=== PATIENT | female | born 1975 | race Caucasian/White ===

== ENCOUNTER 2017-05-14 17:56 | Emergency (ER) | payer OTHER ==
[2017-05-14 18:07] VITALS: BP 137/67; PULSE 103; RESP 16; TEMP 99.1
--- NOTE | 2017-05-14 18:29 | ED ---
Skin/Abscess/FB HPI - General Chief complaint: Skin/Abscess/Foreign Body Stated complaint: abscess on left side of head Time Seen by Provider: 05/14/17 18:22 Source: patient, RN notes reviewed Mode of arrival: ambulatory Limitations: no limitations - History of Present Illness Initial comments: This is a 41-year-old female who presents to the emergency department with chief complaint of abscess. Patient states that she developed an abscess on the left side of her head 2 days ago. She states that it has progressively grown in size since that time. Patient states that she frequently gets abscesses on her scalp and has to have them lanced and given antibiotics. Patient is unsure of which antibiotic she is usually prescribed. Patient denies any history of MRSA. Denies fever or chills. Denies chest pain, shortness of breath, abdominal pain, nausea or vomiting, headache or vision changes. - Related Data Previous Rx's Medication Instructions Recorded Sulfamethox-Tmp 800-160Mg [Bactrim 1 tab PO Q12HR #20 tab 05/14/17 DS 800-160 mg] Allergies Allergy/AdvReac Type Severity Reaction Status Date / Time Penicillins Allergy Anaphylaxis Verified 05/14/17 18:08 Review of Systems ROS Statement: Those systems with pertinent positive or pertinent negative responses have been documented in the HPI. ROS Other: All systems not noted in ROS Statement are negative. Past Medical History Past Medical History: Blood Disorder, CVA/TIA, Diabetes Mellitus, Deep Vein Thrombosis (DVT), GERD/Reflux, Hyperlipidemia, Hypertension, Osteoarthritis (OA) Additional Past Medical History / Comment(s): neuropathy, chronic anemia History of Any Multi-Drug Resistant Organisms: None Reported Past Surgical History: Cholecystectomy Additional Past Surgical History / Comment(s): 2 right knee surgeries, nose reconstruction, carpal tunnel surgery in both hands, laser eye surgery, hysteroscopy after miscarriage, ovarian cyst removal Past Psychological History: Depression Smoking Status: Never smoker Past Alcohol Use History: Occasional Past Drug Use History: None Reported General Exam - General Exam Comments Initial Comments: General: Awake and alert, well-developed; in no apparent distress. HEENT: Head atraumatic, normocephalic. Approximately 2 cm x 2 cm abscess left scalp superior to left ear. There is minimal drainage and crusting overlying the abscess with surrounding erythema. Pupils are equal, round and reactive to light. Extraocular movements intact. Oropharynx moist without erythema or exudate. Neck: Supple. Normal ROM. Cardiovascular: Regular rate and rhythm. No murmurs, rubs or gallops. Chest symmetrical. Respiratory: Lungs clear to auscultation bilaterally. No wheezes, rales or rhonchi. Normal respiratory effort with no use of accessory muscles. Musculoskeletal: Normal ROM, no tenderness bilateral upper and lower extremities. Ambulating normally. Skin: [place], warm and dry. Neurological: Alert and oriented x3. CN II-XII grossly intact. Speech is fluent and answers are appropriate. No focal neuro deficits. Psychiatric: Normal mood and affect. No overt signs of depression or anxiety noted. Limitations: no limitations Course Vital Signs 05/14/17 18:01 Temperature 99.1 F Pulse Rate 103 H Respiratory 16 Rate Blood Pressure 137/67 O2 Sat by Pulse 99 Oximetry Procedures - Incision & Drainage Consent Obtained: verbal consent Indication: Abscess Site: scalp (Left parietal superior to the ear) Size (cm): 2 Anesthetic Used: lidocaine 1% Amount (mLs): 3 I&D Cleaning Method: Alcohol Wipe Scalpel Used: #11 I&D Drainage Obtained: Pus, Blood Culture Obtained?: No Patient Tolerated Procedure: well, no complications Medical Decision Making - Medical Decision Making This is a 41-year-old female who presents to the emergency department for evaluation of abscess on left side of scalp. I&D was performed and patient tolerated well without complication. Patient will be started on Bactrim. Vital signs are stable and she is in no acute distress. She will be discharged home. She is in agreement and voices understanding. All questions answered. Disposition Clinical Impression: Scalp abscess Disposition: HOME SELF-CARE Condition: Good Instructions: Abscess Incision and Drainage (ED), Abscess (ED) Additional Instructions: Please take medications as prescribed. Please apply warm compresses. Please follow up with primary care provider within 1-2 days. Return to emergency department if symptoms should worsen or any concerns arise. Prescriptions: Sulfamethox-Tmp 800-160Mg [Bactrim DS 800-160 mg] 1 tab PO Q12HR #20 tab Referrals: None,Stated [Primary Care Provider] - 1-2 days Time of Disposition: 18:29
== END 2017-05-14 18:51 | disposition home or self-care (01) ==
LOC: EC 17:56
DX: L02.811 Cutaneous abscess of head [any part, except face] (principal); Z86.73 Personal history of transient ischemic attack (TIA), and cerebral infarction without residual deficits; Z88.0 Allergy status to penicillin
CPT/HCPCS: 10060; 99283

== ENCOUNTER → 2017-10-28 | Outpatient (CLI) | payer OTHER ==
--- NOTE | 2017-10-28 22:33 | US ---
EXAMINATION TYPE: US st tissue neck DATE OF EXAM: 10/28/2017 COMPARISON: NONE CLINICAL HISTORY: 42-year-old female R22.1 Lump in neck. Pt states palpable lump midline submandibula r since childhood, has recently gotten larger/ also palpable lump left lateral neck by physician Technique: Targeted sonographic examination below the chin at the site of palpable abnormality and al so along the left lateral neck. FINDINGS: Veneer Clipper Helper notes: Midline submandibular at area of pt's palpable shows two probable lymph nodes padma uring 6 mm and 5 mm. Along the left lateral neck at area of physician palpated abnormality, there are two probable lymph n odes measuring 2 mm and 5 mm short axis. Otherwise, no solid or cystic lesions are seen. IMPRESSION: A couple lymph nodes at each site of palpable abnormality, personally at the submental region and sec ondly along the left lateral neck. The nodes in the submental region are borderline in size measuring up to 6 mm. The nodes along the left lateral neck are small measuring up to 5 mm short axis.
== END | disposition home or self-care (01) ==
LOC: RADUSWWP 15:02
PROVIDERS: ATTEND Family Medicine
DX: R22.1 Localized swelling, mass and lump, neck (principal)
CPT/HCPCS: 76536

== ENCOUNTER → 2017-11-05 | Outpatient (CLI) | payer OTHER ==
--- NOTE | 2017-11-05 14:27 | US ---
EXAMINATION TYPE: US venous doppler duplex LE RT DATE OF EXAM: 11/05/2017 2:15 PM COMPARISON: NONE CLINICAL HISTORY: M79.89 RT LEG SWELLING. Pt states right leg swelling SIDE PERFORMED: Right TECHNIQUE: The lower extremity deep venous system is examined utilizing real time linear array sonog refugio with graded compression, doppler sonography and color-flow sonography. VESSELS IMAGED: External Iliac Vein (EIV) Common Femoral Vein Deep Femoral Vein Greater Saphenous Vein * Femoral Vein Popliteal Vein Small Saphenous Vein * Proximal Calf Veins (* superficial vessels) Right Leg: Negative for DVT Grayscale, color doppler, spectral doppler imaging performed of the deep veins of the right lower ext remity. There is normal flow, compressibility, vascular waveforms. IMPRESSION: No ultrasound evidence for acute DVT in the right lower extremity.
== END | disposition home or self-care (01) ==
LOC: RADUSWWP 13:46
PROVIDERS: ATTEND Family Medicine
DX: M79.89 Other specified soft tissue disorders (principal)

== ENCOUNTER 2017-12-05 02:47 | Emergency (ER) | payer OTHER ==
[2017-12-05] MEDS ORDERED: SODIUM CHLORIDE 0.9% 1,000 ML IV STA (03:01)
[2017-12-05] MEDS ORDERED: ONDANSETRON 4 MG/2 ML VIAL IVP STA (03:01)
[2017-12-05] MEDS ORDERED: MORPHINE SULFATE 4 MG/ML SYRINGE IV STA (03:01)
--- NOTE | 2017-12-05 03:04 | ED ---
Abdominal Pain HPI <Rafael Bess - Last Filed: 12/05/17 06:04> - General Source: patient, family Mode of arrival: wheelchair Limitations: no limitations <Bindu Mckeon - Last Filed: 12/06/17 03:28> - General Chief Complaint: Abdominal Pain Stated Complaint: ABD PAIN Time Seen by Provider: 12/05/17 02:55 - History of Present Illness Initial Comments: 42-year-old female patient presents to the emergency department today for evaluation of right side abdominal pain. Patient states that the pain started approximately 20 minutes prior to arrival. She reports that the pain is intermittent and stabbing in nature. Patient states that she is nauseated and has had dry heaves since the pain started. Patient last had food intake at 6: 30 PM. Patient denies any constipation or diarrhea. Denies any hematuria, dysuria, urinary frequency, urinary urgency. Denies any chest pain or shortness of breath with this. Has not had any fevers or chills. States she is feeling well throughout the day. Patient has had cholecystectomy and a left ovarian cyst removed. Patient denies any recent rash, back pain, numbness, tingling, dizziness, weakness, headache, visual changes, or any other complaints. (Bindu Mckeon) - Related Data Previous Rx's Medication Instructions Recorded Famotidine [Pepcid] 20 mg PO BID #14 tablet 12/05/17 Allergies Allergy/AdvReac Type Severity Reaction Status Date / Time Penicillins Allergy Anaphylaxis Verified 12/05/17 02:54 Review of Systems ROS Other: All systems not noted in ROS Statement are negative. <Rafael Bess - Last Filed: 12/05/17 06:04> ROS Other: All systems not noted in ROS Statement are negative. <Bindu Mckeon - Last Filed: 12/06/17 03:28> ROS Statement: Those systems with pertinent positive or pertinent negative responses have been documented in the HPI. Past Medical History Past Medical History: Blood Disorder, CVA/TIA, Diabetes Mellitus, Deep Vein Thrombosis (DVT), GERD/Reflux, Hyperlipidemia, Hypertension, Osteoarthritis (OA) Additional Past Medical History / Comment(s): neuropathy, chronic anemia History of Any Multi-Drug Resistant Organisms: None Reported Past Surgical History: Cholecystectomy Additional Past Surgical History / Comment(s): 2 right knee surgeries, nose reconstruction, carpal tunnel surgery in both hands, laser eye surgery, hysteroscopy after miscarriage, ovarian cyst removal Past Psychological History: Anxiety, Bipolar, Depression, PTSD Smoking Status: Never smoker Past Alcohol Use History: Occasional Past Drug Use History: None Reported <Bindu Mckeon - Last Filed: 12/06/17 03:28> General Exam Limitations: no limitations General appearance: alert, in no apparent distress, other (This is a well- developed, well-nourished adult female patient in no acute distress. Vital signs upon presentation are temperature 98.6F, pulse 84, respirations 20, blood pressure 108/73, pulse ox 98% on room air.) Eye exam: Present: normal appearance, PERRL, EOMI. Absent: scleral icterus, conjunctival injection, periorbital swelling ENT exam: Present: normal exam, normal oropharynx, mucous membranes moist Respiratory exam: Present: normal lung sounds bilaterally. Absent: respiratory distress, wheezes, rales, rhonchi, stridor Cardiovascular Exam: Present: regular rate, normal rhythm, normal heart sounds. Absent: systolic murmur, diastolic murmur, rubs, gallop, clicks GI/Abdominal exam: Present: soft, tenderness (Right upper quadrant and midepigastric tenderness), normal bowel sounds. Absent: distended, guarding, rebound, rigid Back exam: Absent: CVA tenderness (R), CVA tenderness (L) Neurological exam: Present: alert, oriented X3, CN II-XII intact Psychiatric exam: Present: normal affect, normal mood Skin exam: Present: warm, dry, intact, normal color. Absent: rash <Bindu Mckeon - Last Filed: 12/06/17 03:28> Vital Signs 12/05/17 12/05/17 02:50 06:15 Temperature 98.6 F 97.9 F Pulse Rate 84 87 Respiratory 20 18 Rate Blood Pressure 108/73 121/61 O2 Sat by Pulse 98 97 Oximetry Medical Decision Making - Lab Data Result diagrams: 12/05/17 03:15 12/05/17 03:15 <Rafael Bess - Last Filed: 12/05/17 06:04> - Lab Data Result diagrams: 12/05/17 03:15 12/05/17 03:15 <Bindu Mckeon - Last Filed: 12/06/17 03:28> - Medical Decision Making 42-year-old female patient presented to the emergency department today for evaluation of right-sided abdominal pain. Physical examination did reveal some midepigastric and right upper quadrant abdominal tenderness. Symptoms started just 20 minutes prior to arrival. Labs and x-ray read are pending. Case will be handed over to my attending Dr. Bess who will follow patient until disposition. (Bindu Mckeon) - Lab Data Lab Results 12/05/17 12/05/17 12/05/17 Range/Units 03:15 03:15 03:15 WBC 11.6 H (3.8-10.6) k/uL RBC 5.20 (3.80-5.40) m/uL Hgb 13.2 (11.4-16.0) gm/dL Hct 43.8 (34.0-46.0) % MCV 84.1 (80.0-100.0) fL MCH 25.4 (25.0-35.0) pg MCHC 30.2 L (31.0-37.0) g/dL RDW 16.4 H (11.5-15.5) % Plt Count 296 (150-450) k/uL Neutrophils % 66 % Lymphocytes % 23 % Monocytes % 8 % Eosinophils % 1 % Basophils % 1 % Neutrophils # 7.6 (1.3-7.7) k/uL Lymphocytes # 2.7 (1.0-4.8) k/uL Monocytes # 0.9 (0-1.0) k/uL Eosinophils # 0.1 (0-0.7) k/uL Basophils # 0.1 (0-0.2) k/uL Hypochromasia Slight Anisocytosis Slight Sodium 136 L (137-145) mmol/L Potassium 4.0 (3.5-5.1) mmol/L Chloride 103 (98-107) mmol/L Carbon Dioxide 23 (22-30) mmol/L Anion Gap 10 mmol/L BUN 11 (7-17) mg/dL Creatinine 0.63 (0.52-1.04) mg/dL Est GFR (CKD-EPI)AfAm >90 (>60 ml/min/1.73 sqM) Est GFR (CKD-EPI)NonAf >90 (>60 ml/min/1.73 sqM) Glucose 257 H (74-99) mg/dL Plasma Lactic Acid Hermes 1.2 (0.7-2.0) mmol/L Calcium 9.0 (8.4-10.2) mg/dL Total Bilirubin 0.2 (0.2-1.3) mg/dL AST 14 (14-36) U/L ALT 20 (9-52) U/L Alkaline Phosphatase 85 (38-126) U/L Total Protein 6.7 (6.3-8.2) g/dL Albumin 4.0 (3.5-5.0) g/dL Amylase 64 (30-110) U/L Lipase 266 (23-300) U/L Urine Color Urine Appearance (Clear) Urine pH (5.0-8.0) Ur Specific [place] (1.001-1.035) Urine Protein (Negative) Urine Glucose (UA) (Negative) Urine Ketones (Negative) Urine Blood (Negative) Urine Nitrite (Negative) Urine Bilirubin (Negative) Urine Urobilinogen (<2.0) mg/dL Ur Leukocyte Esterase (Negative) Urine RBC (0-5) /hpf Urine WBC (0-5) /hpf Ur Squamous Epith Cells (0-4) /hpf Urine Mucus (None) /hpf Urine HCG, Qual (Not Detectd) 12/05/17 12/05/17 Range/Units 03:15 03:15 WBC (3.8-10.6) k/uL RBC (3.80-5.40) m/uL Hgb (11.4-16.0) gm/dL Hct (34.0-46.0) % MCV (80.0-100.0) fL MCH (25.0-35.0) pg MCHC (31.0-37.0) g/dL RDW (11.5-15.5) % Plt Count (150-450) k/uL Neutrophils % % Lymphocytes % % Monocytes % % Eosinophils % % Basophils % % Neutrophils # (1.3-7.7) k/uL Lymphocytes # (1.0-4.8) k/uL Monocytes # (0-1.0) k/uL Eosinophils # (0-0.7) k/uL Basophils # (0-0.2) k/uL Hypochromasia Anisocytosis Sodium (137-145) mmol/L Potassium (3.5-5.1) mmol/L Chloride (98-107) mmol/L Carbon Dioxide (22-30) mmol/L Anion Gap mmol/L BUN (7-17) mg/dL Creatinine (0.52-1.04) mg/dL Est GFR (CKD-EPI)AfAm (>60 ml/min/1.73 sqM) Est GFR (CKD-EPI)NonAf (>60 ml/min/1.73 sqM) Glucose (74-99) mg/dL Plasma Lactic Acid Hermes (0.7-2.0) mmol/L Calcium (8.4-10.2) mg/dL Total Bilirubin (0.2-1.3) mg/dL AST (14-36) U/L ALT (9-52) U/L Alkaline Phosphatase (38-126) U/L Total Protein (6.3-8.2) g/dL Albumin (3.5-5.0) g/dL Amylase (30-110) U/L Lipase (23-300) U/L Urine Color Light Yellow Urine Appearance Clear (Clear) Urine pH 5.0 (5.0-8.0) Ur Specific [place] 1.008 (1.001-1.035) Urine Protein Negative (Negative) Urine Glucose (UA) 4+ H (Negative) Urine Ketones Trace H (Negative) Urine Blood Negative (Negative) Urine Nitrite Negative (Negative) Urine Bilirubin Negative (Negative) Urine Urobilinogen <2.0 (<2.0) mg/dL Ur Leukocyte Esterase Small H (Negative) Urine RBC 1 (0-5) /hpf Urine WBC 1 (0-5) /hpf Ur Squamous Epith Cells 2 (0-4) /hpf Urine Mucus Rare H (None) /hpf Urine HCG, Qual Not Detected (Not Detectd) Disposition <Rafael Bess - Last Filed: 12/05/17 06:04> Is patient prescribed a controlled substance at d/c from ED?: No <Bindu Mckeon - Last Filed: 12/06/17 03:28> Clinical Impression: Abdominal pain Disposition: HOME SELF-CARE Condition: Good Instructions: Abdominal Pain (ED) Prescriptions: Famotidine [Pepcid] 20 mg PO BID #14 tablet Referrals: Mary Mireles MD [Primary Care Provider] - 1-2 days Armando Krueger MD [STAFF PHYSICIAN] - 1-2 days
[2017-12-05 03:46] LABS: ALT 20 U/L (9-52); AST 14 U/L (14-36); Alkaline Phosphatase 85 U/L (38-126); Amylase 64 U/L (30-110); Anion Gap 10 mmol/L; Blood Urea Nitrogen 11 mg/dL (7-17); Carbon Dioxide 23 mmol/L (22-30); Chloride 103 mmol/L (98-107); Glucose 257 mg/dL (74-99); Lipase 266 U/L (23-300); Sodium 136 mmol/L (137-145); Total Bilirubin 0.2 mg/dL (0.2-1.3); Total Protein 6.7 g/dL (6.3-8.2)
[2017-12-05 03:48] LABS: Appearance,Urine Clear (Clear); Bilirubin,Urine Negative (Negative); Blood,Urine Negative (Negative); Color,Urine Light Yellow; Glucose,Urine (UA) 4+ (Negative); Ketones,Urine Trace (Negative); Leukocyte Esterase,Urine Small (Negative); Mucus,Urine Rare /hpf; Nitrite,Urine Negative (Negative); Protein,Urine Negative (Negative); RBC,Urine 1 /hpf (0-5); Specific Gravity,Urine 1.008 (1.001-1.035); Squamous Epithelial Cell,Urine 2 /hpf (0-4); Urobilinogen,Urine <2.0 mg/dL (<2.0); WBC,Urine 1 /hpf (0-5)
[2017-12-05 03:53] LABS: Anisocytosis Slight; Basophils # (A) 0.1 k/uL (0-0.2); Basophils % (A) 1 %; Eosinophils # (A) 0.1 k/uL (0-0.7); Eosinophils % (A) 1 %; HCT 43.8 % (34.0-46.0); HGB 13.2 gm/dL (11.4-16.0); Hypochromasia Slight; Lymphocytes # (A) 2.7 k/uL (1.0-4.8); Lymphocytes % (A) 23 %; MCH 25.4 pg (25.0-35.0); MCHC 30.2 g/dL (31.0-37.0); MCV 84.1 fL (80.0-100.0); Mean Platelet Volume 7.7; Monocytes # (A) 0.9 k/uL (0-1.0); Monocytes % (A) 8 %; Neutrophils # (A) 7.6 k/uL (1.3-7.7); Neutrophils % (A) 66 %; Platelet Count 296 k/uL (150-450); RDW 16.4 % (11.5-15.5); WBC 11.6 k/uL (3.8-10.6)
--- NOTE | 2017-12-05 04:15 | XR ---
EXAMINATION TYPE: XR KUB DATE OF EXAM: 12/05/2017 COMPARISON: NONE HISTORY: Abdominal pain TECHNIQUE: 2 views FINDINGS: There is no sign of intestinal obstruction or pneumoperitoneum. Fecal pattern is normal. Th ere are clips from cholecystectomy. There are no pathologic calcifications over the kidneys. There is no evidence of a mass. IMPRESSION: Nonacute abdomen.
--- NOTE | 2017-12-05 05:35 | CT ---
EXAMINATION TYPE: CT abdomen pelvis wo con DATE OF EXAM: 12/05/2017 COMPARISON: None HISTORY: abd pain CT DLP: 996.11 mGycm Automated exposure control for dose reduction was used. TECHNIQUE: Helical acquisition of images was performed from the lung bases through the pelvis. FINDINGS: Lung bases are clear of consolidation. There is no pleural effusion. Heart size is normal. There is n o pericardial effusion. Liver spleen pancreas appear normal. Bile ducts are not dilated. There are clips from cholecystectomy . There is no adrenal mass. Kidneys have normal size and contour. There is no hydronephrosis. Ureters are not dilated. There is no retroperitoneal adenopathy. Appendix appears normal. There is no ascite s. There is no intestinal wall thickening. There are no dilated loops. There is no sign of pneumoperi toneum. Uterus is large and anteverted. This probably relates to fibroids. Lumbar spine is intact. Bl adder distends smoothly. There is no sign of a hernia. IMPRESSION: ENLARGED UTERUS THAT MEASURES 13 X 8 CM CONSISTENT WITH FIBROIDS. NO SIGN OF ACUTE ABDOMEN AND PELVIS . NORMAL APPENDIX.
[2017-12-05 06:16] VITALS: BP 121/61; PULSE 87; RESP 18; TEMP 97.9
== END 2017-12-05 06:15 | disposition home or self-care (01) ==
LOC: EC 02:47
DX: R10.31 Right lower quadrant pain (principal); R11.2 Nausea with vomiting, unspecified; Z86.73 Personal history of transient ischemic attack (TIA), and cerebral infarction without residual deficits; Z90.49 Acquired absence of other specified parts of digestive tract; Z88.0 Allergy status to penicillin
CPT/HCPCS: 36415; 80053; 82150; 83605; 83690; 85025; 81001; 81025; 74018; 74176; 99284; 96374; 96375; 96361 ×3; J2270; J2405

== ENCOUNTER 2017-12-22 21:30 | Emergency (ER) | payer OTHER ==
[2017-12-22 21:38] VITALS: BP 119/57; PULSE 96; RESP 18; TEMP 98.6
[2017-12-22] MEDS ORDERED: SULFAMETH-TMP DS STARTER PACK 2 TAB BTL PO STA (22:03)
[2017-12-22] MEDS ORDERED: KETOROLAC 30 MG/ML 1 ML VIAL IM STA (22:03)
[2017-12-22] MEDS ORDERED: ACET/COD 300 MG/30 MG STARTER PACK 6 TAB BTL PO STA (22:03)
--- NOTE | 2017-12-22 22:04 | ED ---
Skin/Abscess/FB HPI - General Chief complaint: Skin/Abscess/Foreign Body Stated complaint: abscess Time Seen by Provider: 12/22/17 21:43 Source: patient Mode of arrival: ambulatory Limitations: no limitations - History of Present Illness Initial comments: 42-year-old female patient presents to the emergency department today for evaluation of left-sided facial swelling. Patient states this started when she woke this morning. Patient states that the area to her left upper lip is swollen, painful, and firm to touch. Patient states that the pain has been worsening throughout the day. States that she has had similar type lesions that were diagnosed with abscesses. Patient denies any dental pain or mouth swelling. She denies any difficulty swallowing or trismus. States that she did have elevated temperature at home today, did take Motrin for this. She denies any drainage from the site. Patient denies any recent rash, shortness breath, chest pain, abdominal pain, nausea, vomiting, diarrhea, constipation, back pain, numbness, tingling, dizziness, weakness, hematuria, dysuria, urinary urgency, urinary frequency, headache, visual changes, or any other complaints. - Related Data Previous Rx's Medication Instructions Recorded Famotidine [Pepcid] 20 mg PO BID #14 tablet 12/05/17 Sulfamethoxazole/Trimethoprim 1 each PO BID #20 tablet 12/22/17 [Bactrim DS 800-160 mg] Allergies Allergy/AdvReac Type Severity Reaction Status Date / Time Penicillins Allergy Anaphylaxis Verified 12/22/17 21:38 Review of Systems ROS Statement: Those systems with pertinent positive or pertinent negative responses have been documented in the HPI. ROS Other: All systems not noted in ROS Statement are negative. Past Medical History Past Medical History: Blood Disorder, CVA/TIA, Diabetes Mellitus, Deep Vein Thrombosis (DVT), GERD/Reflux, Hyperlipidemia, Hypertension, Osteoarthritis (OA) Additional Past Medical History / Comment(s): neuropathy, chronic anemia History of Any Multi-Drug Resistant Organisms: None Reported Past Surgical History: Cholecystectomy Additional Past Surgical History / Comment(s): 2 right knee surgeries, nose reconstruction, carpal tunnel surgery in both hands, laser eye surgery, hysteroscopy after miscarriage, ovarian cyst removal Past Psychological History: Anxiety, Bipolar, Depression, PTSD Smoking Status: Never smoker Past Alcohol Use History: None Reported Past Drug Use History: None Reported General Exam Limitations: no limitations General appearance: alert, in no apparent distress, other (This is a well- developed, well-nourished adult female patient in no acute distress. Vital signs upon presentation are temperature 98.6F, pulse 96, respirations 18, blood pressure 119/57, pulse ox 97% on room air.) Eye exam: Present: normal appearance, PERRL, EOMI. Absent: scleral icterus, conjunctival injection, periorbital swelling ENT exam: Present: normal exam, normal oropharynx, mucous membranes moist Respiratory exam: Present: normal lung sounds bilaterally. Absent: respiratory distress, wheezes, rales, rhonchi, stridor Cardiovascular Exam: Present: regular rate, normal rhythm, normal heart sounds. Absent: systolic murmur, diastolic murmur, rubs, gallop, clicks GI/Abdominal exam: Present: soft, normal bowel sounds. Absent: distended, tenderness, guarding, rebound, rigid Neurological exam: Present: alert, oriented X3, CN II-XII intact Psychiatric exam: Present: normal affect, normal mood Skin exam: Present: warm, dry, intact, normal color, other (Patient has 2 cm area of induration to the left upper lip. There is a central scabbed lesion with no evidence of drainage. Area is mildly erythematous. No fluctuance or evidence of drainable abscess.). Absent: rash Course Vital Signs 12/22/17 21:36 Temperature 98.6 F Pulse Rate 96 Respiratory 18 Rate Blood Pressure 119/57 O2 Sat by Pulse 97 Oximetry Medical Decision Making - Medical Decision Making 42-year-old female patient presented to the emergency department today for evaluation of left-sided facial pain and swelling. Physical examination did reveal 2 cm area of induration to the left upper lip. Area was mildly erythematous. No evidence of drainable abscess. Patient will be started on Bactrim and instructed to follow-up with her primary care physician for recheck tomorrow. Return parameters discussed in detail. She verbalizes understanding and agrees with this plan. Disposition Clinical Impression: Facial abscess Disposition: HOME SELF-CARE Condition: Good Instructions: Abscess (ED) Additional Instructions: Apply warm compresses to the face 20 minutes at a time at least 4 times daily. Take medications as directed. Follow-up with your primary care physician for recheck in 1-2 days. Return here immediately for any new, worsening, or concerning symptoms. Prescriptions: Sulfamethoxazole/Trimethoprim [Bactrim DS 800-160 mg] 1 each PO BID #20 tablet Is patient prescribed a controlled substance at d/c from ED?: No Referrals: Mary Mireles MD [Primary Care Provider] - 1-2 days Time of Disposition: 22:04
== END 2017-12-22 22:15 | disposition home or self-care (01) ==
LOC: EC 21:30
DX: L02.01 Cutaneous abscess of face (principal); Z86.73 Personal history of transient ischemic attack (TIA), and cerebral infarction without residual deficits; Z88.0 Allergy status to penicillin
CPT/HCPCS: 99283; 96372; J1885

== ENCOUNTER → 2017-12-29 | Outpatient (CLI) | payer OTHER ==
--- NOTE | 2017-12-29 16:13 | US ---
EXAMINATION TYPE: US transvaginal DATE OF EXAM: 12/29/2017 COMPARISON: CT CLINICAL HISTORY: N92.1Excessive and frequent metrorrhagia. TECHNIQUE: Transvaginal (TV). Date of LMP: 12/11/2017 EXAM MEASUREMENTS: Uterus: 11.8 x 6.5 x 8.8 cm Endometrial Stripe: 1.9 cm Right Ovary: 3.4 x 2.4 x 3.2 cm Left Ovary: 3.2 x 1.9 x 3.2 cm 1. Uterus: Anteverted enlarged, one fibroid seen left uterus measures 2.5 x 2.1 x 2.2 cm. 2. Endometrium: measures 1.9 cm 3. Right Ovary: Solitary lesion with peripheral flow measures 1.9 x 1.8 x 1.7 cm. 4. Left Ovary: not well seen transvaginally, additional images done transabdominally. 5. Bilateral Adnexa: wnl 6. Posterior cul-de-sac: no free fluid IMPRESSION: 1. Abnormal endometrial thickening measuring up to 1.9 cm. This could represent endometrial hyperplas ia, endometrial polyp, or endometrial mass. Direct visualization and sampling is recommended. 2. Dominant right ovarian lesion with peripheral vascular flow likely representing an involuting hemo rrhagic cyst. 3. Heterogenous enlarged uterus with an intramural leiomyoma measuring 2.5 cm.
--- NOTE | 2017-12-30 09:42 | MM ---
Reason for exam: screening (asymptomatic). Last mammogram was performed 3 years and 2 months ago. History: Family history of breast cancer in grandmother and breast cancer in 2 aunts. Physical Findings: A clinical breast exam by your physician is recommended on an annual basis and results should be correlated with mammographic findings. MG Screening Mammo w CAD Bilateral CC and MLO view(s) were taken. Technologist: RT Zee (R)(M) Prior study comparison: October 21, 2014, mammogram, performed at [place]. July 15, 2013, mammogram, performed at [place]. The breast tissue is heterogeneously dense. This may lower the sensitivity of mammography. Finding: There are typically benign round, linear calcifications in the upper outer quadrant, anterior position of the right breast. There is no discrete abnormality. ASSESSMENT: Benign, BI-RAD 2 RECOMMENDATION: Routine screening mammogram of both breasts in 1 year.
== END | disposition home or self-care (01) ==
LOC: RADMAMWWP 15:06
PROVIDERS: ATTEND Obstetrics & Gynecology
DX: Z12.31 Encounter for screening mammogram for malignant neoplasm of breast (principal); R93.89 Abnormal findings on diagnostic imaging of other specified body structures; N83.8 Other noninflammatory disorders of ovary, fallopian tube and broad ligament; N85.2 Hypertrophy of uterus
CPT/HCPCS: 76830; 77067

== ENCOUNTER 2018-01-21 06:16 | Day surgery (SDC) | payer OTHER ==
[2018-01-14 12:14] VITALS: BMI 35.2
[~2018-01-21 06:16] MED LIST: LACTATED RINGERS 1,000 ML IV SCH; MOXIFLOXACIN HCL 0.5% DROPS 3 ML BTL OP ONE; TETRACAINE 0.5% OPHTH (PF) DROPS 4 ML BTL OP ONE; TIMOLOL 0.5% OPHTH DROPS 5 ML BTL OP ONE
[2018-01-21] MEDS: PHENYLEPHRINE 2.5% OPHTH DRP 2ML OP NR ×3 (06:50→07:02)
[2018-01-21] MEDS: CYCLOPENTOLATE 1% OPHTH SOLN 2 ML BTL OP ONE ×3 (06:53→07:05)
[2018-01-21] MEDS ORDERED: INSULIN ASPART 100 UNIT/ML 1 ML 10 ML VIAL SQ ONE ×2 (07:05→08:58)
[2018-01-21 07:06] VITALS: RESP 16; TEMP 98.2
[2018-01-21 07:07] LABS: Glucose,Whole Blood 219 mg/dL (75-99)
[2018-01-21] MEDS ORDERED: fentaNYL (PF) 50 MCG/ML 2 ML AMP ONE (07:27)
[2018-01-21] MEDS ORDERED: MIDAZOLAM 2 MG/2 ML VIAL ONE (07:27)
[2018-01-21] MEDS ORDERED: LIDOCAINE 1% (PF) 10MG/ML VIAL MISCELLANE ONE (07:41)
[2018-01-21] MEDS ORDERED: DUOVISC KIT (GREEN BOX) INTRAOCULA ONE (07:41)
[2018-01-21] MEDS ORDERED: BALANCED SALT IRRIG SOLN COMB2 15 ML IRRIG.SOLN IRRIGATION ONE (07:41)
[2018-01-21] MEDS ORDERED: EPINEPHrine (PF) 0.3 ML in BALANCED SALT IRRIG SOLN COMB2 500 ML IRRIGATION ONE (07:44)
[2018-01-21] MEDS ORDERED: TRYPAN BLUE 0.06% SYRINGE 0.5 ML SYRINGE INTRAOCULA ONE (07:50)
[2018-01-21] MEDS ORDERED: CHONDROITIN-SOD HYALURONATE 1 EACH SYRINGE (0.75 ML) INTRAOCULA ONE (07:53)
--- NOTE | 2018-01-21 08:07 | P.OP ---
Date of Procedure: 01/21/18 Preoperative Diagnosis: mature cataract Postoperative Diagnosis: mature cataract Procedure(s) Performed: same Implants: PCB00 22.00 Anesthesia: MAC Surgeon: Miah Bernal Estimated Blood Loss (ml): 0 Pathology: none sent Condition: stable Disposition: same day Indications for Procedure: blurry vision Operative Findings: no complications
[2018-01-21 08:32] VITALS: BP 108/69; PULSE 69
[2018-01-21 08:48] LABS: Glucose,Whole Blood 230 mg/dL (75-99)
--- NOTE | 2018-01-21 16:02 | OP ---
OPERATIVE REPORT DATE OF SURGERY: January 21, 2018. PROCEDURE PERFORMED: Phacoemulsification of cataract and intraocular lens implant of the left eye. PREOPERATIVE DIAGNOSIS: Mature cataract. POSTOPERATIVE DIAGNOSIS: Mature cataract. SURGEON: Dr. Miah Bernal. ANESTHESIA: Topical. ESTIMATED BLOOD LOSS: None. SPECIMEN: Taken none. NARRATIVE: After obtaining the appropriate consent, the patient was brought to the operating room. There she was placed under cardiac monitoring, prepped and draped in the usual sterile manner. She was approached from her left temporal side and at the 5 o'clock position an MVR blade was used to create a paracentesis port. Through this opening 1% Xylocaine MPF 50 50 mix with balanced salt solution was injected into the anterior chamber. This was followed by placement of an air bubble and injection of trypan to highlight the structures of the anterior chamber. This was left in place for approximately 2 minutes and the tri torres blue was then irrigated away and the anterior chamber was then stabilized with Viscoat. At the 3 o'clock position, a 2.5 mm keratome was used to create a self-sealing corneal flap incision in a Langerman's fashion. A cystotome was introduced to begin a continuous tear capsulorrhexis which was then completed using the Utrata forceps. Hydrodissection and hydrodelineation of the lens was accomplished with balanced salt solution. Phacoemulsification of the lens utilizing phaco chop was accomplished in 1 minute 11 seconds at 19% power. Additional Xylocaine MPF was instilled into the anterior chamber. This was followed by removal of the remaining cortex under irrigation and aspiration along with careful polishing of the posterior capsule in the capsule vacuum mode. Provisc was then used to stabilize the capsular bag and an LAURA PCB 0 0 22.0 diopter posterior chamber intraocular lens was then introduced into the capsular bag without difficulty. The remaining viscoelastic was removed from in and around the intra-ocular lens as well as the anterior chamber. The eye was then brought to normal intraocular pressure through the paracentesis port with balanced salt solution and all incisions were confirmed watertight. She then received 2 drops of 0.5% timolol followed by 2 drops of moxifloxacin, was then lightly patched and shielded in the usual manner. There were no complications from the procedure. She tolerated the procedure well. She returned to outpatient recovery in good condition. MMODL / IJN: [id number] /
== END 2018-01-21 09:00 | disposition home or self-care (01) ==
LOC: OR 06:16
PROVIDERS: ATTEND Ophthalmology
DX: H25.12 Age-related nuclear cataract, left eye (principal); E11.36 Type 2 diabetes mellitus with diabetic cataract; H52.01 Hypermetropia, right eye; E11.40 Type 2 diabetes mellitus with diabetic neuropathy, unspecified; G25.81 Restless legs syndrome; F31.9 Bipolar disorder, unspecified; I11.9 Hypertensive heart disease without heart failure; J45.909 Unspecified asthma, uncomplicated; M19.90 Unspecified osteoarthritis, unspecified site; I48.91 Unspecified atrial fibrillation; D64.9 Anemia, unspecified; K21.9 Gastro-esophageal reflux disease without esophagitis; Z79.2 Long term (current) use of antibiotics; Z79.84 Long term (current) use of oral hypoglycemic drugs; Z79.82 Long term (current) use of aspirin; Z79.899 Other long term (current) drug therapy; Z86.14 Personal history of Methicillin resistant Staphylococcus aureus infection; Z88.0 Allergy status to penicillin
CPT/HCPCS: 81025; 66984; C1780; J2250; J0171; J3010; J2001

== ENCOUNTER 2018-02-09 17:16 | Observation (INO) | payer OTHER ==
[2018-02-09] MEDS ORDERED: NITROGLYCERIN OINT 1 INCH/GM PACKET TOPICAL STA (17:49)
[2018-02-09] MEDS ORDERED: MORPHINE SULFATE 4 MG/ML SYRINGE IV STA (17:49)
[2018-02-09] MEDS ORDERED: ASPIRIN 81 MG PO STA (17:49)
--- NOTE | 2018-02-09 17:52 | ED ---
General Adult HPI - General Chief complaint: Chest Pain Stated complaint: Chest pain Time Seen by Provider: 02/09/18 17:37 Source: patient, family, EMS, RN notes reviewed Mode of arrival: EMS Limitations: no limitations - History of Present Illness Initial comments: Patient is a pleasant 42-year-old female presenting to the emergency department with chest discomfort. Onset of symptoms was around an hour ago while at her doctor's office. Discomfort is mostly under the left breast. Patient did have similar symptoms a week ago that was more central that point. Discomfort is somewhat sharp and somewhat pressure. Discomfort is somewhat worse with deep breaths. No associated dyspnea, nausea, or diaphoresis. No history of similar symptoms prior to last week. No calf pain. Patient did have nitroglycerin in the office as well as another one by EMS with only mild improvement of symptoms. Discomfort is currently rated 7/10. No radiation. - Related Data Home Medications Medication Instructions Recorded Confirmed Albuterol Inhaler [Ventolin Hfa 1 - 2 puff INHALATION RT-Q6H PRN 12/23/17 Inhaler] Albuterol Nebulized [Ventolin 2.5 mg INHALATION RT-QID PRN 12/23/17 02/09/18 Nebulized] Aspirin 81 mg PO DAILY 12/23/17 02/09/18 Ergocalciferol [Vitamin D2] 50,000 unit PO MO 12/23/17 02/09/18 FLUoxetine HCL [PROzac] 10 mg PO DAILY 12/23/17 02/09/18 Ferrous Sulfate [Iron] 325 mg PO DAILY 12/23/17 02/09/18 Furosemide [Lasix] 20 mg PO DAILY 12/23/17 02/09/18 Lisinopril [Prinivil] 10 mg PO DAILY 12/23/17 02/09/18 Metoprolol Tartrate 25 mg PO BID 12/23/17 02/09/18 Potassium Chloride [Klor-Con 20] 20 meq PO DAILY 12/23/17 02/09/18 Ranitidine HCl [Zantac] 150 mg PO DAILY 12/23/17 02/09/18 Rosuvastatin [Crestor] 10 mg PO HS 12/23/17 02/09/18 rOPINIRole HCL [Requip] 0.25 mg PO HS 12/23/17 02/09/18 Gabapentin [Neurontin] 600 mg PO TID 01/14/18 02/09/18 Melatonin 5 mg PO HS PRN 01/14/18 02/09/18 diphenhydrAMINE [Benadryl] 25 mg PO DAILY PRN 01/14/18 02/09/18 metFORMIN HCL [Glucophage] 1,000 mg PO BID 01/14/18 02/09/18 glipiZIDE XL [Glucotrol Xl] 10 mg PO DAILY 02/09/18 02/09/18 Allergies Allergy/AdvReac Type Severity Reaction Status Date / Time Penicillins Allergy Anaphylaxis Verified 02/09/18 18:02 Review of Systems ROS Statement: Those systems with pertinent positive or pertinent negative responses have been documented in the HPI. ROS Other: All systems not noted in ROS Statement are negative. Constitutional: Denies: fever Eyes: Denies: eye pain ENT: Denies: ear pain Respiratory: Denies: cough Cardiovascular: Reports: chest pain Endocrine: Denies: fatigue Gastrointestinal: Denies: abdominal pain Genitourinary: Denies: dysuria Musculoskeletal: Denies: back pain Skin: Denies: rash Neurological: Denies: weakness Past Medical History Past Medical History: Blood Disorder, CVA/TIA, Diabetes Mellitus, Deep Vein Thrombosis (DVT), GERD/Reflux, Hyperlipidemia, Hypertension, Osteoarthritis (OA) Additional Past Medical History / Comment(s): neuropathy, chronic anemia, Hx of a fall and hospitalized at [facility] for MRSA infection on face., states scab on elbow from her fall., Cataract left eye. History of Any Multi-Drug Resistant Organisms: MRSA Date of last positivie culture/infection: 12/2017 MDRO Source:: face Past Surgical History: Cholecystectomy Additional Past Surgical History / Comment(s): 2 right knee surgeries, nose reconstruction, carpal tunnel surgery in both hands, laser eye surgery, hysteroscopy after miscarriage, ovarian cyst removal Past Anesthesia/Blood Transfusion Reactions: No Reported Reaction Past Psychological History: Anxiety, Bipolar, Depression, PTSD Smoking Status: Never smoker Past Alcohol Use History: Rare Past Drug Use History: None Reported - Past Family History Mother Family Medical History: Cancer, CVA/TIA Father Family Medical History: Cancer, CVA/TIA General Exam Limitations: no limitations General appearance: alert, in no apparent distress Head exam: Present: atraumatic Eye exam: Present: normal appearance Neck exam: Present: normal inspection Respiratory exam: Present: normal lung sounds bilaterally. Absent: chest wall tenderness Cardiovascular Exam: Present: regular rate, normal rhythm Expanded Peripheral pulses: 2+: Radial (R), Radial (L), Posterior Tibialis (R), Posterior Tibialis (L) GI/Abdominal exam: Present: soft. Absent: tenderness Extremities exam: Present: normal inspection. Absent: pedal edema, calf tenderness Neurological exam: Present: alert Psychiatric exam: Present: normal affect, normal mood Skin exam: Present: normal color Course Vital Signs 02/09/18 02/09/18 17:33 17:44 Temperature 97.9 F Pulse Rate 79 Pulse Rate [ 80 [employer]ger ] Respiratory 18 Rate Blood Pressure 133/81 O2 Sat by Pulse 99 Oximetry - Reevaluation(s) Reevaluation #1: 02/09/18 20:16 Patient reevaluated and resting comfortably in bed. Patient symptom-free at this point. Patient and family updated on results and plan. Case was discussed in detail with Dr. Moran, who will admit for Dr. Sims. EKG Findings - EKG Comments: EKG Findings:: Normal sinus rhythm 75. IA 03/24/1965. QRS 80. QT 384. QTC 428. Normal axis. Poor R-wave progression. No acute ST change. Medical Decision Making - Lab Data Result diagrams: 02/09/18 17:50 02/09/18 17:50 Lab Results 02/09/18 02/09/18 02/09/18 Range/Units 17:50 17:50 17:50 WBC 7.6 (3.8-10.6) k/uL RBC 4.34 (3.80-5.40) m/uL Hgb 12.3 (11.4-16.0) gm/dL Hct 36.8 (34.0-46.0) % MCV 84.9 (80.0-100.0) fL MCH 28.3 (25.0-35.0) pg MCHC 33.4 (31.0-37.0) g/dL RDW 14.8 (11.5-15.5) % Plt Count 292 (150-450) k/uL Neutrophils % 62 % Lymphocytes % 25 % Monocytes % 8 % Eosinophils % 3 % Basophils % 1 % Neutrophils # 4.7 (1.3-7.7) k/uL Lymphocytes # 1.9 (1.0-4.8) k/uL Monocytes # 0.6 (0-1.0) k/uL Eosinophils # 0.2 (0-0.7) k/uL Basophils # 0.0 (0-0.2) k/uL PT (9.0-12.0) sec INR (<1.2) APTT (22.0-30.0) sec D-Dimer (<0.60) mg/L FEU Sodium 140 (137-145) mmol/L Potassium 4.0 (3.5-5.1) mmol/L Chloride 106 (98-107) mmol/L Carbon Dioxide 26 (22-30) mmol/L Anion Gap 8 mmol/L BUN 13 (7-17) mg/dL Creatinine 0.73 (0.52-1.04) mg/dL Est GFR (CKD-EPI)AfAm >90 (>60 ml/min/1.73 sqM) Est GFR (CKD-EPI)NonAf >90 (>60 ml/min/1.73 sqM) Glucose 132 H (74-99) mg/dL Calcium 9.1 (8.4-10.2) mg/dL Magnesium 2.0 (1.6-2.3) mg/dL Total Bilirubin 0.4 (0.2-1.3) mg/dL AST 21 (14-36) U/L ALT 26 (9-52) U/L Alkaline Phosphatase 74 (38-126) U/L Total Creatine Kinase 55 (30-135) U/L CK-MB (CK-2) 0.3 (0.0-2.4) ng/mL CK-MB (CK-2) Rel Index 0.5 Troponin I <0.012 (0.000-0.034) ng/mL Total Protein 6.4 (6.3-8.2) g/dL Albumin 3.6 (3.5-5.0) g/dL 02/09/18 Range/Units 17:50 WBC (3.8-10.6) k/uL RBC (3.80-5.40) m/uL Hgb (11.4-16.0) gm/dL Hct (34.0-46.0) % MCV (80.0-100.0) fL MCH (25.0-35.0) pg MCHC (31.0-37.0) g/dL RDW (11.5-15.5) % Plt Count (150-450) k/uL Neutrophils % % Lymphocytes % % Monocytes % % Eosinophils % % Basophils % % Neutrophils # (1.3-7.7) k/uL Lymphocytes # (1.0-4.8) k/uL Monocytes # (0-1.0) k/uL Eosinophils # (0-0.7) k/uL Basophils # (0-0.2) k/uL PT 9.6 (9.0-12.0) sec INR 1.0 (<1.2) APTT 23.6 (22.0-30.0) sec D-Dimer 0.34 (<0.60) mg/L FEU Sodium (137-145) mmol/L Potassium (3.5-5.1) mmol/L Chloride (98-107) mmol/L Carbon Dioxide (22-30) mmol/L Anion Gap mmol/L BUN (7-17) mg/dL Creatinine (0.52-1.04) mg/dL Est GFR (CKD-EPI)AfAm (>60 ml/min/1.73 sqM) Est GFR (CKD-EPI)NonAf (>60 ml/min/1.73 sqM) Glucose (74-99) mg/dL Calcium (8.4-10.2) mg/dL Magnesium (1.6-2.3) mg/dL Total Bilirubin (0.2-1.3) mg/dL AST (14-36) U/L ALT (9-52) U/L Alkaline Phosphatase (38-126) U/L Total Creatine Kinase (30-135) U/L CK-MB (CK-2) (0.0-2.4) ng/mL CK-MB (CK-2) Rel Index Troponin I (0.000-0.034) ng/mL Total Protein (6.3-8.2) g/dL Albumin (3.5-5.0) g/dL - Radiology Data Radiology results: image reviewed (Chest x-ray shows no acute process) Disposition Clinical Impression: Chest pain Disposition: ADMITTED IP TO THIS [facility] Is patient prescribed a controlled substance at d/c from ED?: No Referrals: Mary Mireles MD [Primary Care Provider] - 1-2 days Time of Disposition: 20:05
[2018-02-09 18:50] LABS: Basophils % (A) 1 %; Eosinophils # (A) 0.2 k/uL (0-0.7); Eosinophils % (A) 3 %; HCT 36.8 % (34.0-46.0); HGB 12.3 gm/dL (11.4-16.0); Lymphocytes # (A) 1.9 k/uL (1.0-4.8); Lymphocytes % (A) 25 %; MCH 28.3 pg (25.0-35.0); MCHC 33.4 g/dL (31.0-37.0); MCV 84.9 fL (80.0-100.0); Mean Platelet Volume 7.5; Monocytes # (A) 0.6 k/uL (0-1.0); Monocytes % (A) 8 %; Neutrophils # (A) 4.7 k/uL (1.3-7.7); Neutrophils % (A) 62 %; Platelet Count 292 k/uL (150-450); RBC 4.34 m/uL (3.80-5.40); RDW 14.8 % (11.5-15.5); WBC 7.6 k/uL (3.8-10.6)
[2018-02-09 18:55] LABS: ALT 26 U/L (9-52); AST 21 U/L (14-36); Albumin 3.6 g/dL (3.5-5.0); Alkaline Phosphatase 74 U/L (38-126); Anion Gap 8 mmol/L; Blood Urea Nitrogen 13 mg/dL (7-17); Calcium 9.1 mg/dL (8.4-10.2); Carbon Dioxide 26 mmol/L (22-30); Chloride 106 mmol/L (98-107); Glucose 132 mg/dL (74-99); Sodium 140 mmol/L (137-145); Total Bilirubin 0.4 mg/dL (0.2-1.3); Total Protein 6.4 g/dL (6.3-8.2)
[2018-02-09 19:11] LABS: Creatine Kinase 55 U/L (30-135)
[2018-02-09 19:24] LABS: Creatine Kinase MB 0.3 ng/mL (0.0-2.4); Troponin I <0.012 ng/mL (0.000-0.034)
[2018-02-09 19:31] LABS: D-Dimer 0.34 mg/L FEU (<0.60); Partial Thromboplastin Time 23.6 sec (22.0-30.0); Prothrombin Time 9.6 sec (9.0-12.0)
--- NOTE | 2018-02-09 19:33 | XR ---
EXAMINATION TYPE: XR chest 2V DATE OF EXAM: 02/09/2018 COMPARISON: NONE HISTORY: Chest pain TECHNIQUE: Frontal and lateral views of the chest are obtained. FINDINGS: Heart and mediastinum are normal. Lungs are clear. Diaphragm is normal. Bony thorax is int act. Pulmonary vascularity is normal. There are chest leads. IMPRESSION: No active cardiopulmonary disease. Normal heart.
[2018-02-09] MEDS ORDERED: NITROGLYCERIN SL TABS 0.4 MG TAB SUBLINGUAL PRN (20:05)
[2018-02-10 00:46] LABS: Creatine Kinase 48 U/L (30-135)
[2018-02-10 00:57] LABS: Creatine Kinase MB <0.2 ng/mL (0.0-2.4)
[2018-02-10] MEDS: NITROGLYCERIN OINT 1 INCH/GM PACKET TOPICAL SCH ×4 (00:59→18:08)
[2018-02-10 01:00] LABS: Troponin I <0.012 ng/mL (0.000-0.034)
[2018-02-10 02:31] LABS: Creatine Kinase 48 U/L (30-135)
[2018-02-10 02:45] LABS: Creatine Kinase MB <0.2 ng/mL (0.0-2.4); Troponin I <0.012 ng/mL (0.000-0.034)
[2018-02-10 07:27] LABS: Cholesterol 199 mg/dL (<200); HDL Cholesterol 54 mg/dL (40-60); LDL Cholesterol,Calculated 121 mg/dL (0-99); Triglycerides 122 mg/dL (<150)
[2018-02-10 07:32] LABS: Creatine Kinase 46 U/L (30-135)
[2018-02-10 07:44] LABS: Creatine Kinase MB 0.2 ng/mL (0.0-2.4); Troponin I <0.012 ng/mL (0.000-0.034)
[2018-02-10] MEDS: ASPIRIN 325 MG TAB PO SCH (07:58)
[2018-02-10] MEDS ORDERED: ATORVASTATIN 40 MG TAB PO SCH (10:30)
--- NOTE | 2018-02-10 13:14 | P.CRDCN ---
History of Present Illness History of present illness: This is a pleasant 42-year-old female past medical history significant for hypertension, diabetes mellitus, dyslipidemia, asthma, history of blood clots and GERD. She denies history of coronary artery disease and has never seen a security compliance engineer for any reason. We have been asked to see her in consultation for chest pain. She states it first stated on Friday of last week. She felt a pressure in her chest in the mid-sternal region that was heavy and sharp. The pain came at rest and was not associated with shortness of breath, dizziness or palpitations. She took an antacid and the symptoms subsided. The next day while she was cleaning the bathroom she states she passed out. There was no precipitating symptoms of chest pain, shortness of breath, dizziness, nausea, vomiting or diaphoresis. She is unsure how long she lost consciousness for but when she woke up her hands were clammy. She states recently her blood sugars have been out of control and her PCP was increasing her glipizide from 5 to 10 mg daily. She was in her PCP office yesterday for a follow up on medications changes and when she was asked to take a deep breath for her exam she again felt a very sharp and heavy pressure in the chest in the mid-sternal region. She denies shortness of breath, dizziness or palpitations. The office gave her an aspirin and SL nitro and called EMS. EMS gave her additional nitro with no relief. Upon arrival to ED she was given another SL nitro. In total her chest pain lasted approximately 1 hour and ultimately subsided on its own. At the time of my exam she is chest pain free. EKG reveals sinus mechanism with no acute ST or T-wave abnormalities noted with poor R-wave progression. Chest xray negative for an acute cardiopulmonary process. Laboratory data reviewed, WBC 7.6, hemoglobin 12.3, platelets 292, d-dimer 0.34 , sodium 140, potassium 4, creatinine 0.73, magnesium 2.0, cardiac enzymes negative 4, LDL 121 and HDL 54. Current cardiac medications include aspirin 81 mg daily, Lasix 20 mg daily, lisinopril 10 mg daily, Lopressor 25 mg twice a day, potassium supplementation, rosuvastatin 10 mg daily. At the time of my exam: CONSTITUTIONAL: Denies fever. Denies chills. EYES: Denies blurred vision. Denies vision changes. Denies eye pain. EARS, NOSE, MOUTH & THROAT: Denies headache. Denies sore throat. Denies ear pain. CARDIOVASCULAR: Denies chest pain. Denies shortness of breath. Denies orthopnea. Denies PND. Denies palpitations. RESPIRATORY: Denies cough. GASTROINTESTINAL: Denies abdominal pain. Denies diarrhea. Denies constipation. Denies nausea. Denies vomiting. MUSCULOSKELETAL: Denies myalgias. INTEGUMENTARY: Denies pruitis. Denies rash. NEUROLOGIC: Denies numbness. Denies tingling. Denies weakness. PSYCHIATRIC: Denies anxiety. Denies depression. ENDOCRINE: Denies fatigue. Denies weight change. Denies polydipsia. Denies polyurina. GENITOURINARY: Denies burning, hematuria or urgency with micturation. HEMATOLOGIC: Denies history of anemia. Denies bleeding. Blood pressure 127/81 heart rate 89 afebrile maintaining oxygen saturation on nasal cannula GENERAL: This is a 42-year-old female in no apparent distress at the time of my examination. HEENT: Head is atraumatic, normocephalic. Pupils are equal, round. Sclerae anicteric. Conjunctivae are clear. Mucous membranes of the mouth are moist. Neck is supple. There is no jugular venous distention. No carotid bruit is heard. LUNGS: Clear to auscultation no wheezes, rales or rhonchi. No chest wall tenderness is noted on palpation or with deep breathing. HEART: Regular rate and rhythm without murmurs, rubs or gallops. S1 and S2 heard. ABDOMEN: Soft, nontender. Bowel sounds are heard. No organomegaly noted. EXTREMITIES: No evidence of peripheral edema and no calf tenderness noted. VASCULAR: Radial and dorsalis pedis pulses palpated, no evidence of clubbing. NEUROLOGIC: Patient is awake, alert and oriented x3. ASSESSMENT Chest pain, atypical. An acute coronary event has been ruled out with no EKG evidence of acute ischemia and negative cardiac enzymes. Syncope, may be related to low blood sugar with recent increase in glupizide. Hypertension Dyslipidemia, uncontrolled. Diabetes mellitus Significant family history of premature coronary artery disease PLAN An acute coronary event has been ruled out. Obtain 2D echocardiogram and doppler study to assess cardiac structure and function. Perform exercise stress echocardiogram to assess for stress induced ischemia. Telemetry tracings have been unremarkable for acute arrhythmia. Increase rosuvastatin to 20 mg daily for better control of LDL cholesterol. Optimal less than 100. If stress test is normal she is stable from a cardiac perspective, follow up with Dr. Hung in 2-3 weeks. Thank you kindly for this consultation. Nurse Practitioner note has been reviewed, I agree with a documented findings and plan of care. Patient was seen and examined. Past Medical History Past Medical History: Blood Disorder, Heart Failure, CVA/TIA, Diabetes Mellitus , Deep Vein Thrombosis (DVT), GERD/Reflux, Hyperlipidemia, Hypertension, Osteoarthritis (OA), Sleep Apnea/CPAP/BIPAP Additional Past Medical History / Comment(s): 02-09-18 pt wants pne vaccine this admit. pmh includes:neuropathy, RLS, chronic anemia,"thrombocytosis" hx of blood clots both arms, Hx of a fall and hospitalized at [facility] for MRSA infection on face, "takes metoprolol for rapid heart rate",hx uterine fibroids,pt no longer needs cpap machine-after losing 162#. History of Any Multi-Drug Resistant Organisms: MRSA Date of last positivie culture/infection: 12/2017 MDRO Source:: face Past Surgical History: Cholecystectomy Additional Past Surgical History / Comment(s): 2 right knee surgeries, nose reconstruction, bilcarpal tunnel release, laser eye surgery, [id number] , ovarian cyst removal, sepideh cataracts removed Past Anesthesia/Blood Transfusion Reactions: No Reported Reaction Smoking Status: Never smoker - Past Family History Mother Family Medical History: Cancer, CVA/TIA Father Family Medical History: Cancer, CVA/TIA Medications and Allergies Home Medications Medication Instructions Recorded Confirmed Type Albuterol Inhaler [Ventolin Hfa 1 - 2 puff INHALATION RT-Q6H PRN 12/23/17 History Inhaler] Albuterol Nebulized [Ventolin 2.5 mg INHALATION RT-QID PRN 12/23/17 02/09/18 History Nebulized] Aspirin 81 mg PO DAILY 12/23/17 02/09/18 History Ergocalciferol [Vitamin D2] 50,000 unit PO MO 12/23/17 02/09/18 History FLUoxetine HCL [PROzac] 10 mg PO DAILY 12/23/17 02/09/18 History Ferrous Sulfate [Iron] 325 mg PO DAILY 12/23/17 02/09/18 History Furosemide [Lasix] 20 mg PO DAILY 12/23/17 02/09/18 History Lisinopril [Prinivil] 10 mg PO DAILY 12/23/17 02/09/18 History Metoprolol Tartrate 25 mg PO BID 12/23/17 02/09/18 History Potassium Chloride [Klor-Con 20] 20 meq PO DAILY 12/23/17 02/09/18 History Ranitidine HCl [Zantac] 150 mg PO DAILY 12/23/17 02/09/18 History Rosuvastatin [Crestor] 10 mg PO HS 12/23/17 02/09/18 History rOPINIRole HCL [Requip] 0.25 mg PO HS 12/23/17 02/09/18 History Gabapentin [Neurontin] 600 mg PO TID 01/14/18 02/09/18 History Melatonin 5 mg PO HS PRN 01/14/18 02/09/18 History diphenhydrAMINE [Benadryl] 25 mg PO DAILY PRN 01/14/18 02/09/18 History metFORMIN HCL [Glucophage] 1,000 mg PO BID 01/14/18 02/09/18 History glipiZIDE XL [Glucotrol Xl] 10 mg PO DAILY 02/09/18 02/09/18 History Allergies Allergy/AdvReac Type Severity Reaction Status Date / Time Penicillins Allergy Anaphylaxis Verified 02/09/18 18:02 Physical Exam Vitals: Vital Signs Temp Pulse Pulse Resp BP Pulse Ox 02/10/18 07:59 97.8 F 89 18 127/81 98 02/10/18 05:24 18 02/10/18 02:15 97.8 F 80 18 114/66 98 02/10/18 01:27 75 18 117/66 96 02/10/18 00:39 82 16 128/85 98 02/09/18 22:30 80 16 125/70 97 02/09/18 17:44 80 02/09/18 17:33 97.9 F 79 18 133/81 99 Intake and Output 02/09/18 02/10/18 02/10/18 22:59 06:59 14:59 Other: Weight 107.048 kg Results 02/09/18 17:50 02/09/18 17:50 Cardiac Enzymes 02/09/18 02/09/18 02/09/18 Range/Units 17:50 17:50 23:58 AST 21 (14-36) U/L CK-MB (CK-2) 0.3 <0.2 (0.0-2.4) ng/mL Troponin I <0.012 <0.012 (0.000-0.034) ng/mL 02/10/18 02/10/18 Range/Units 02:10 06:37 AST (14-36) U/L CK-MB (CK-2) <0.2 0.2 (0.0-2.4) ng/mL Troponin I <0.012 <0.012 (0.000-0.034) ng/mL Coagulation 02/09/18 Range/Units 17:50 PT 9.6 (9.0-12.0) sec APTT 23.6 (22.0-30.0) sec Lipids 02/10/18 Range/Units 06:37 Triglycerides 122 (<150) mg/dL Cholesterol 199 (<200) mg/dL HDL Cholesterol 54 (40-60) mg/dL CBC 02/09/18 Range/Units 17:50 WBC 7.6 (3.8-10.6) k/uL RBC 4.34 (3.80-5.40) m/uL Hgb 12.3 (11.4-16.0) gm/dL Hct 36.8 (34.0-46.0) % Plt Count 292 (150-450) k/uL Comprehensive Metabolic Panel 02/09/18 Range/Units 17:50 Sodium 140 (137-145) mmol/L Potassium 4.0 (3.5-5.1) mmol/L Chloride 106 (98-107) mmol/L Carbon Dioxide 26 (22-30) mmol/L BUN 13 (7-17) mg/dL Creatinine 0.73 (0.52-1.04) mg/dL Glucose 132 H (74-99) mg/dL Calcium 9.1 (8.4-10.2) mg/dL AST 21 (14-36) U/L ALT 26 (9-52) U/L Alkaline Phosphatase 74 (38-126) U/L Total Protein 6.4 (6.3-8.2) g/dL Albumin 3.6 (3.5-5.0) g/dL Current Medications Generic Name Dose Route Start Last Admin Trade Name Freq PRN Reason Stop Dose Admin Aspirin 325 mg 02/10/18 09:00 02/10/18 07:58 Aspirin PO 325 mg DAILY [facility] Administration Atorvastatin Calcium 40 mg 02/10/18 10:30 Lipitor PO DAILY [facility] Furosemide 20 mg 02/10/18 10:30 Lasix PO DAILY [facility] Lisinopril 10 mg 02/10/18 10:30 Zestril PO DAILY [facility] Metoprolol Tartrate 25 mg 02/10/18 21:00 Lopressor PO BID [facility] Nitroglycerin 1 inch 02/10/18 00:00 02/10/18 07:57 Nitro-Bid Oint TOPICAL 1 inch Q6HR [facility] Administration Nitroglycerin 0.4 mg 02/09/18 20:05 Nitrostat SUBLINGUAL Q5M PRN Chest Pain Potassium Chloride 20 meq 02/10/18 10:30 K-Dur 20 PO DAILY [facility] Sodium Chloride 10 ml 02/09/18 21:00 02/09/18 23:02 Saline Flush IV 10 ml BID [facility] Administration Intake and Output 02/09/18 02/10/18 02/10/18 22:59 06:59 14:59 Other: Weight 107.048 kg 02/09/18 17:50 02/09/18 17:50
[2018-02-10] MEDS: LISINOPRIL 10 MG TAB PO SCH (13:29)
[2018-02-10] MEDS: POTASSIUM CHLORIDE ER 20 MEQ TAB.ER PO SCH (13:29)
[2018-02-10] MEDS: FUROSEMIDE 20 MG TAB PO SCH (13:30)
--- NOTE | 2018-02-10 13:55 | ECHOS ---
STRESS ECHOCARDIOGRAM INDICATIONS: Chest pain. BASELINE HEART RATE: 83 BASELINE BLOOD PRESSURE: 136/79 MAXIMUM HEART RATE: 164 MAXIMUM BLOOD PRESSURE: 171/80 85% MPHR: 150 100% MPHR: 176 METS: 6.2 MAXIMUM STAGE REACHED: I TOTAL EXERCISE TIME: 4:49 CLINICAL INFORMATION: STRESS DATA: Pretesting physical examination showed a heart rate of 83, pressure is 136/79 mmHg. Baseline EKG showed sinus mechanism. The patient exercised on the treadmill according to [employer] protocol for a total of 4 minutes and 49 seconds and achieved 6.2 METS. Max heart rate was 164, which is about 93% of maximum predicted heart rate. Maximum blood pressure was 171/80 mmHg. Clinically, the patient developed chest discomfort as well as shortness of breath in response to exercise. The EKG showed about [address]-segment depression. The changes were result on recovery. ECHOCARDIOGRAM IMAGES: On echocardiogram images from parasternal long axis view, parasternal short axis view, apical 4 chamber and apical 2 chamber view were obtained as the baseline images, at the peak of the heart rate, as well as on recovery. The echocardiogram images did not show any obvious wall motion abnormalities concerning for ischemia. CONCLUSION: 1. Poor exercise tolerance. 2. Chest discomfort and shortness of breath in response to exercise. 3. Mild EKG changes and response to exercise. 4. Normal echocardiogram in response to exercise. MMODL / IJN: [id number] /
--- NOTE | 2018-02-10 17:40 | HP ---
HISTORY AND PHYSICAL CHIEF COMPLAINT: Chest pain. HISTORY OF PRESENT ILLNESS: This 42-year-old woman with a past medical history of multiple medical problems, including CVA, TIA, CHF, diabetes, DVT, GERD, hypertension, hyperlipidemia, follows with Dr. Mary Mireles. The patient was complaining of chest pain. The pain is mainly situated and located on the left side of the chest. The patient had onset of symptoms in the doctor's office. Patient mainly had pain in the left chest under the breast with some radiation to the back. The patient's pain was increasing with respiration. The patient came to [facility] and was admitted for further evaluation and treatment. A stress test was apparently negative, but the patient had significant shortness of breath during the testing. D-dimer was negative. LDL was 124. Chest x-ray showed no active cardiopulmonary disease. There is no history of any fever, rigors or chills. No history of headache, loss of consciousness, seizures. PAST MEDICAL HISTORY: 1. History of CHF. 2. History of CVA, TIA. 3. Diabetes mellitus, type 2. 4. DVT. 5. GERD. 6. Hypertension. 7. Hyperlipidemia. 8. DJD. HOME MEDICATIONS: 1. Requip 0.25 mg p.o. at bedtime. 2. Glucophage 1000 mg p.o. b.i.d. 3. Glucotrol XL 10 mg p.o. daily. 4. Benadryl 25 mg daily p.r.n. 5. Crestor 10 mg at bedtime. 6. Zantac 150 mg p.o. daily. 7. Klor-Con 20 mEq p.o. daily. 8. Metoprolol 25 mg p.o. b.i.d. 9. Melatonin 5 mg p.o. at bedtime p.r.n. 10.Prinivil 10 mg p.o. daily. 11.Neurontin 600 mg p.o. t.i.d. 12.Lasix 20 mg p.o. daily. 13.Iron 325 mg p.o. daily. 14.Prozac 10 mg p.o. daily. 15.Drisdol 50,000 Friday. 16.Aspirin 81 mg daily. 17.Albuterol p.r.n. ALLERGIES: PENICILLIN. FAMILY HISTORY: History of CVA, TIA and cancer in the family. SOCIAL HISTORY: No history of smoking. Occasional alcohol intake. REVIEW OF SYSTEMS: ENT: No diminished hearing. No diminished vision. CARDIOVASCULAR SYSTEM: As mentioned earlier. RESPIRATORY SYSTEM: As mentioned earlier. GI: No nausea, vomiting. : No dysuria or retention. NERVOUS SYSTEM: No numbness, weakness. ALLERGY/IMMUNOLOGY: No asthma, hayfever. MUSCULOSKELETAL: As mentioned earlier. HEMATOLOGY/ONCOLOGY: As mentioned earlier. ENDOCRINE: Diabetes mellitus. CONSTITUTIONAL: As mentioned earlier. DERMATOLOGY: Negative. RHEUMATOLOGY: Negative. PSYCHIATRY: As mentioned earlier. PHYSICAL EXAMINATION: Patient is alert and oriented x3. Pulse is 95, blood pressure 140/88, respiration 18, temperature 98.1, pulse ox 97% on room air. HEENT: Conjunctivae normal. Oral mucosa moist. NECK: No jugular venous distention. No carotid bruit. No lymph node enlargement. CARDIOVASCULAR SYSTEM: S1, S2 muffled. RESPIRATORY SYSTEM: Breath sounds diminished at the bases. No rhonchi. No crackles. ABDOMEN: Soft, non-tender. No mass palpable. LEGS: No edema. No swelling. NERVOUS SYSTEM: Higher functions as mentioned earlier. Moves all 4 limbs. No focal motor or sensory deficit. LYMPHATICS: No lymph node palpable in neck, axillae or groin. SKIN: No ulcer, rash, bleeding. LABS: CBC noted. BMP glucose 132. LDL is 121. ASSESSMENT: 1. Chest pain, possible unstable angina; possible pleurisy. Stress test negative. Patient had chest pain. 2. Hyperlipidemia. 3. Diabetes mellitus, type 2. 4. Cerebrovascular accident, transient ischemic attack. 5. Congestive heart failure. 6. Deep venous thrombosis. 7. Gastroesophageal reflux disease. 8. Hypertension. 9. History of degenerative joint disease. 10.Sleep apnea. RECOMMENDATIONS AND DISCUSSION: In this 42-year-old woman who presented with multiple complex medical issues, we will monitor the patient closely, continue the current management, continue with symptomatic treatment. I would recommend continuing to monitor. We will treat the patient empirically and continue to monitor. I would also recommend a sed rate and CRP also. Prognosis guarded. Continue the rest of the medications. Further recommendations to follow. MMODL / IJN: [id number] /
[2018-02-10 19:48] VITALS: RESP 16
[2018-02-10] MEDS: METOPROLOL TARTRATE 25 MG TAB PO SCH (20:03)
[2018-02-10] MEDS: GABAPENTIN 300 MG CAP PO SCH (20:03)
[2018-02-10] MEDS ORDERED: ACETAMINOPHEN TAB 325 MG TAB PO PRN (20:06)
[2018-02-10 20:26] LABS: Glucose,Whole Blood 316 mg/dL (75-99)
[2018-02-10] MEDS ORDERED: ATORVASTATIN 20 MG TAB PO SCH (21:00)
[2018-02-10] MEDS ORDERED: MELATONIN 5 MG TABLET PO PRN (21:00)
[2018-02-10] MEDS ORDERED: INSULIN ASPART 100 UNIT/ML 1 ML 10 ML VIAL SQ ONE (22:30)
[2018-02-10] MEDS: metFORMIN 500 MG TAB PO SCH (22:40)
[2018-02-11] MEDS: NITROGLYCERIN OINT 1 INCH/GM PACKET TOPICAL SCH ×2 (00:01→05:45)
[2018-02-11 07:14] LABS: Glucose,Whole Blood 200 mg/dL (75-99)
[2018-02-11 08:23] VITALS: BP 87/54; PULSE 77; TEMP 98
[2018-02-11] MEDS: metFORMIN 500 MG TAB PO SCH (08:26)
[2018-02-11] MEDS: LISINOPRIL 10 MG TAB PO SCH (08:26)
[2018-02-11] MEDS: ASPIRIN 325 MG TAB PO SCH (08:26)
[2018-02-11] MEDS: FUROSEMIDE 20 MG TAB PO SCH (08:26)
[2018-02-11] MEDS: GABAPENTIN 300 MG CAP PO SCH (08:26)
[2018-02-11] MEDS: METOPROLOL TARTRATE 25 MG TAB PO SCH (08:27)
[2018-02-11] MEDS: POTASSIUM CHLORIDE ER 20 MEQ TAB.ER PO SCH (08:27)
[2018-02-11] MEDS ORDERED: COLCHICINE 0.6 MG EACH PO SCH (09:00)
[2018-02-11] MEDS ORDERED: glipiZIDE 5 MG TAB PO SCH (09:00)
[2018-02-11] MEDS ORDERED: FLUoxetine HCL 10 MG CAP PO SCH (09:00)
[2018-02-11] MEDS ORDERED: FERROUS SULFATE 325 MG TAB PO SCH (09:00)
[2018-02-11] MEDS ORDERED: ASPIRIN 81 MG PO SCH (09:00)
[2018-02-11] MEDS ORDERED: FAMOTIDINE 20 MG TAB PO SCH (09:00)
[2018-02-11] MEDS ORDERED: IBUPROFEN 600 MG TAB PO SCH (09:00)
--- NOTE | 2018-02-11 09:54 | P.PN ---
Subjective This is a pleasant 42-year-old female past medical history significant for hypertension, diabetes mellitus, dyslipidemia, asthma, history of blood clots and GERD. She denies history of coronary artery disease and has never seen a emergency management specialist for any reason. We have been asked to see her in consultation for chest pain. She was seen and evaluated yesterday in the ED and sent for a stress test. The stress test was normal however, she developed significant shortness of breath while on the treadmill. We recommended she be observed for another 24 hours. She continues to have chest pain that has been constant over the last 12 hours that is worse with deep inspiration and described as a burning sensation. She denies shortness of breath at rest, dizziness or palpitations. Laboratory data reviewed, ESR 28, C-reactive protein 45.5. Blood pressure 87/54 heart rate 77 afebrile maintaining oxygen saturation on room air. Currently maintained on lisinopril 10 mg daily, atorvastatin 20 mg daily, aspirin 81 mg daily, lasix 20 mg daily and lopressor 25 mg BID. GENERAL: This is a 42-year-old female in no apparent distress at the time of my examination. Ongoing chest discomfort. HEENT: Head is atraumatic, normocephalic. Pupils are equal, round. Sclerae anicteric. Conjunctivae are clear. Mucous membranes of the mouth are moist. Neck is supple. There is no jugular venous distention. No carotid bruit is heard. LUNGS: Clear to auscultation no wheezes, rales or rhonchi. No chest wall tenderness is noted on palpation or with deep breathing. HEART: Regular rate and rhythm without murmurs, rubs or gallops. S1 and S2 heard. EXTREMITIES: No evidence of peripheral edema and no calf tenderness noted. ASSESSMENT Chest pain, atypical. An acute coronary event has been ruled out with no EKG evidence of acute ischemia and negative cardiac enzymes. Negative stress test. Acute pericarditis Syncope, may be related to low blood sugar with recent increase in glupizide. Hypertension Dyslipidemia, uncontrolled. Diabetes mellitus Significant family history of premature coronary artery disease PLAN Start her on colchicine 0.6mg BID and ibuprofen 600mg TID PRN. Continue pepcid. Prescriptions have been sent to pharmacy. Decrease lisnopril to 5 mg daily. Advised her to check her blood pressure daily at home and keep a log to bring with her to next appointment with Dr. Hung. Pt has been updated regarding her diagnosis as well as new medications. Follow up with Dr. Hung in 2 weeks. Nurse Practitioner note has been reviewed, I agree with a documented findings and plan of care. Patient was seen and examined. Objective - Vital Signs Vital signs: Vital Signs Temp 98.0 F 02/11/18 08:00 Pulse 77 02/11/18 08:00 Resp 16 02/11/18 08:00 BP 87/54 02/11/18 08:00 Pulse Ox 96 02/11/18 08:00 Intake & Output 02/10/18 02/11/18 02/11/18 18:59 06:59 18:59 Intake Total 320 Balance 320 Weight 107.1 kg Intake: Oral 320 Other: Voiding Method Toilet Toilet Toilet # Voids 2 - Labs CBC & Chem 7: 02/09/18 17:50 02/09/18 17:50 Labs: Abnormal Lab Results - Last 24 Hours (Table) 02/10/18 02/10/18 02/10/18 Range/Units 17:03 17:04 20:14 ESR 28 H (0-20) mm/hr POC Glucose (mg/dL) 316 H (75-99) mg/dL C-Reactive Protein 45.5 H (<10.0) mg/L 02/11/18 Range/Units 06:46 ESR (0-20) mm/hr POC Glucose (mg/dL) 200 H (75-99) mg/dL C-Reactive Protein (<10.0) mg/L
--- NOTE | 2018-02-11 14:00 | ECHOF ---
Referral Reason:cp MEASUREMENTS -------- HEIGHT: 170.2 cm WEIGHT: 107.0 kg BP: IVSd: 0.9 cm (0.6 - 1.1) LVIDd: 5.2 cm (3.9 - 5.3) LVPWd: 1.2 cm (0.6 - 1.1) IVSs: 1.5 cm LVIDs: 3.6 cm LVPWs: 1.2 cm LA Diam: 3.2 cm (2.7 - 3.8) LAESV Index (A-L): 20.77 ml/m Ao Diam: 3.4 cm (2.0 - 3.7) AV Cusp: 2.4 cm (1.5 - 2.6) LA Diam: 4.0 cm (2.7 - 3.8) MV EXCURSION: 21.171 mm (> 18.000) MV EF SLOPE: 115 mm/s (70 - 150) EPSS: 0.3 cm MV E Quinten: 0.72 m/s MV DecT: 286 ms MV A Quinten: 0.90 m/s MV E/A Ratio: 0.80 AR PHT: 493 ms RAP: 5.00 mmHg RVSP: 15.17 mmHg FINDINGS -------- Sinus rhythm. This was a technically good study. The left ventricular size is normal. There is mild concentric left ventricular hypertrophy. Overa ll left ventricular systolic function is low-normal with, an EF between 50 - 55 %. The right ventricle is normal in size. The left atrial size is normal. The right atrial size is normal. There is mild aortic regurgitation. Mild mitral annular calcification present. Mild mitral regurgitation is present. Mild tricuspid regurgitation present. There is no evidence of pulmonary hypertension. The right v entricular systolic pressure, as measured by Doppler, is 15.17mmHg. There is no pulmonic regurgitation present. The aortic root size is normal. There is no pericardial effusion. CONCLUSIONS -------- 1. The left ventricular size is normal. 2. There is mild concentric left ventricular hypertrophy. 3. Overall left ventricular systolic function is low-normal with, an EF between 50 - 55 %. 4. The right ventricle is normal in size. 5. The left atrial size is normal. 6. The right atrial size is normal. 7. There is mild aortic regurgitation. 8. Mild mitral annular calcification present. 9. Mild mitral regurgitation is present. 10. Mild tricuspid regurgitation present. 11. There is no evidence of pulmonary hypertension. 12. The right ventricular systolic pressure, as measured by Doppler, is 15.17mmHg. 13. There is no pulmonic regurgitation present. 14. The aortic root size is normal. 15. There is no pericardial effusion. WAREDRESSER: Lani Magaña RDCS
--- NOTE | 2018-02-12 08:08 | DS ---
DISCHARGE SUMMARY DATE OF SERVICE: 02/11/2018 FINAL DIAGNOSES: 1. Chest pain, myocardial infarction ruled out, possibly musculoskeletal. 2. Negative stress test. 3. Possible acute pericarditis. 4. Hyperlipidemia. 5. Diabetes mellitus type 2. 6. Cerebrovascular accident, transient ischemic attack. 7. Congestive heart failure. 8. Deep venous thrombosis. 9. Gastroesophageal reflux disease. 10.Hypertension. 11.History of degenerative joint disease. 12.Sleep apnea. DISPOSITION: Patient will be discharged in stable condition with guarded prognosis. HISTORY OF PRESENT ILLNESS: This 42-year-old woman with the past medical history of multiple medical problems, was admitted chest pain, myocardial infarction ruled out. Cardiology performed a stress test and pericarditis. ESR is 28 and CRP is 44.5. On exam, vital signs are stable. Cardiovascular System: S1, S2. Abdomen is soft. Nervous System: No focal deficit. DISCHARGE DIET: Cardiac diet. FOLLOWUP: Follow up with Dr. Mary Mireles in 2-3 days. Follow up with Dr. Hung as recommended. MEDICATIONS: 1. Colchicine 0.6 p.o. b.i.d. 2. Motrin 600 mg p.o. t.i.d. p.r.n. 3. Lopressor 25 mg p.o. b.i.d. 4. Crestor 10 mg q.h.s. 5. Prinivil 10 mg p.o. daily. 6. Iron sulfate 325 mg p.o. daily. 7.zanatc 150 mg p.o. daily. 8. Klor-Con 10 mEq p.o. daily. 9. Lasix 20 mg p.o. 10.Drisdol 50,000 p.o. Friday. 11.Aspirin 81 mg. 12.Prozac 10 mg. 13.requip 0.25 q.h.s. 14.DuoNeb q.i.d. and p.r.n. 15.Gabapentin 600 mg p.o. t.i.d. 16.Metformin 1000 mg p.o. b.i.d. 17.Benadryl 25 mg daily p.r.n. 18.Melatonin 5 mg q.h.s. p.r.n. 19.Glucotrol 10 mg p.o. daily. MMODL / RON: [id number] / MTDD
[2018-02-12] MEDS ORDERED: LISINOPRIL 5 MG TAB PO SCH (09:00)
== END 2018-02-11 12:26 ==
LOC: EC 17:16 → 1SOBS 20:05
PROVIDERS: ADMIT Hospitalist; ATTEND Hospitalist
DX: R07.89 Other chest pain (principal); R55 Syncope and collapse; E11.40 Type 2 diabetes mellitus with diabetic neuropathy, unspecified; I11.0 Hypertensive heart disease with heart failure; I50.9 Heart failure, unspecified; E78.5 Hyperlipidemia, unspecified; K21.9 Gastro-esophageal reflux disease without esophagitis; F43.10 Post-traumatic stress disorder, unspecified; F41.9 Anxiety disorder, unspecified; F31.9 Bipolar disorder, unspecified; G47.30 Sleep apnea, unspecified; M19.90 Unspecified osteoarthritis, unspecified site; Z79.82 Long term (current) use of aspirin; Z79.84 Long term (current) use of oral hypoglycemic drugs; Z79.899 Other long term (current) drug therapy; Z88.8 Allergy status to other drugs, medicaments and biological substances; Z86.14 Personal history of Methicillin resistant Staphylococcus aureus infection; Z90.49 Acquired absence of other specified parts of digestive tract; Z86.73 Personal history of transient ischemic attack (TIA), and cerebral infarction without residual deficits; Z98.42 Cataract extraction status, left eye; Z98.41 Cataract extraction status, right eye; Z86.718 Personal history of other venous thrombosis and embolism; Z82.3 Family history of stroke; Z80.9 Family history of malignant neoplasm, unspecified; Z82.49 Family history of ischemic heart disease and other diseases of the circulatory system
CPT/HCPCS: 96374; 99285; 36415; 93005 ×2; 93306; 93351; 85379; 80061; 80053; 85652; 82550 ×2; 82553 ×2; 83735; 84484 ×2; 85025; 85610; 85730; 86140; 71046; G0378 ×3; J2270

== ENCOUNTER → 2018-03-27 | Outpatient (CLI) | payer OTHER ==
--- NOTE | 2018-04-01 14:41 | P.ARTDOP ---
Arterial Doppler LOWER EXTREMITY ARTERIAL DOPPLER: DATE OF SERVICE: 03/27/2018 Reason for study: Cold feet. Doppler waveforms: Multiphasic bilaterally throughout. Pulse volume recording: Normal configuration. Pressure gradients: Only at the toe level.. Ankle-brachial indices: Greater than 1 bilaterally. Toe pressures: 43 on the right, 60 on the left Impression: Normal study at the ankle and above. Low toe pressures most likely related to vasoconstriction. Distal occlusive process much less likely. Clinical correlation recommended..
== END | disposition home or self-care (01) ==
LOC: RADUSWWP 13:34
PROVIDERS: ATTEND Podiatrist Foot & Ankle Surgery
DX: I73.9 Peripheral vascular disease, unspecified (principal)
CPT/HCPCS: 93923

== ENCOUNTER 2018-05-17 18:45 | Observation (INO) | payer OTHER ==
[2018-05-17] MEDS ORDERED: IPRATROPIUM 0.5 MG/2.5 ML NEBU INHALATION STA (19:01)
[2018-05-17] MEDS ORDERED: FUROSEMIDE 10 MG/ML 4 ML VIAL IV STA (19:01)
[2018-05-17] MEDS ORDERED: ALBUTEROL NEBULIZED 2.5 MG/3 ML INHALATION STA (19:01)
--- NOTE | 2018-05-17 19:14 | ED ---
SOB HPI - General Chief Complaint: Shortness of Breath Stated Complaint: Leg swelling, SOB Time Seen by Provider: 05/17/18 19:01 Source: patient, RN notes reviewed, old records reviewed Mode of arrival: ambulatory Limitations: no limitations - History of Present Illness Initial Comments: This is a 42-year-old female the ER for evaluation. Patient presents for evaluation of shortness of breath with lower extremity edema bilateral lower extremity edema symptoms worsening 3-4 days severely worse or night. No travel history no sick contacts. No fevers, she does have increased cough and congestion. She denies history of heart failure she has had lower extremity edema before denies pain in her legs MD Complaint: shortness of breath, cough -: days(s) (5) Severity: moderate Quality: aching (w cough) Consistency: intermittent Improves With: rest Worsens With: exertion, movement, coughing, inspiration Known History Of: COPD, congestive heart failure Context: recent URI Associated Symptoms: chest pain, pain with inspiration, cough, sputum production Treatments Prior to Arrival: none - Related Data Home Medications Medication Instructions Recorded Confirmed Albuterol Inhaler [Ventolin Hfa 1 - 2 puff INHALATION RT-Q6H PRN 12/23/17 Inhaler] Albuterol Nebulized [Ventolin 2.5 mg INHALATION RT-QID PRN 12/23/17 05/17/18 Nebulized] Aspirin 81 mg PO DAILY 12/23/17 05/17/18 Ergocalciferol [Vitamin D2 50,000 unit PO MO 12/23/17 05/17/18 (DRISDOL)] Ferrous Sulfate [Iron] 325 mg PO DAILY 12/23/17 05/17/18 Furosemide [Lasix] 20 mg PO DAILY 12/23/17 05/17/18 Lisinopril [Prinivil] 10 mg PO DAILY 12/23/17 05/17/18 Metoprolol Tartrate 25 mg PO BID 12/23/17 05/17/18 Potassium Chloride [Klor-Con 20] 20 meq PO DAILY 12/23/17 05/17/18 Ranitidine HCl [Zantac] 150 mg PO DAILY 12/23/17 05/17/18 Rosuvastatin [Crestor] 10 mg PO HS 12/23/17 05/17/18 rOPINIRole HCL [Requip] 0.25 mg PO HS 12/23/17 05/17/18 Gabapentin [Neurontin] 600 mg PO TID 01/14/18 05/17/18 diphenhydrAMINE [Benadryl] 25 mg PO DAILY PRN 01/14/18 05/17/18 metFORMIN HCL [Glucophage] 1,000 mg PO BID 01/14/18 05/17/18 Acetaminophen Tab [Tylenol Tab] 650 mg PO Q6H PRN 05/17/18 05/17/18 FLUoxetine HCL [PROzac] 20 mg PO DAILY 05/17/18 05/17/18 Pioglitazone HCl [Actos] 15 mg PO DAILY 05/17/18 05/17/18 Warfarin Sodium [Coumadin] 6 mg PO DAILY 05/17/18 05/17/18 glipiZIDE XL [Glucotrol XL] 10 mg PO BID 05/17/18 05/17/18 traZODone HCL 50 mg PO HS PRN 05/17/18 05/17/18 Previous Rx's Medication Instructions Recorded Ibuprofen [Motrin] 600 mg PO TID #21 tab 02/11/18 Allergies Allergy/AdvReac Type Severity Reaction Status Date / Time Penicillins Allergy Anaphylaxis Verified 05/17/18 21:29 Review of Systems ROS Statement: Those systems with pertinent positive or pertinent negative responses have been documented in the HPI. ROS Other: All systems not noted in ROS Statement are negative. Past Medical History Past Medical History: Blood Disorder, Heart Failure, CVA/TIA, Diabetes Mellitus , Deep Vein Thrombosis (DVT), GERD/Reflux, Hyperlipidemia, Hypertension, Osteoarthritis (OA), Sleep Apnea/CPAP/BIPAP Additional Past Medical History / Comment(s): 02-09-18 pt wants pne vaccine this admit. pmh includes:neuropathy, RLS, chronic anemia,"thrombocytosis" hx of blood clots both arms, Hx of a fall and hospitalized at [facility] for MRSA infection on face, "takes metoprolol for rapid heart rate",hx uterine fibroids,pt no longer needs cpap machine-after losing 162#. History of Any Multi-Drug Resistant Organisms: MRSA Date of last positivie culture/infection: 12/2017 MDRO Source:: face Past Surgical History: Cholecystectomy Additional Past Surgical History / Comment(s): 2 right knee surgeries, nose reconstruction, bilcarpal tunnel release, laser eye surgery, [id number] , ovarian cyst removal, sepideh cataracts removed Past Anesthesia/Blood Transfusion Reactions: No Reported Reaction Past Psychological History: Anxiety, Bipolar, Depression, PTSD Smoking Status: Never smoker - Past Family History Mother Family Medical History: Cancer, CVA/TIA Father Family Medical History: Cancer, CVA/TIA General Exam - General Exam Comments Initial Comments: Bilateral lower extremity edema noted Limitations: no limitations General appearance: alert, in no apparent distress Head exam: Present: atraumatic, normocephalic, normal inspection Eye exam: Present: normal appearance, PERRL, EOMI. Absent: scleral icterus, conjunctival injection, periorbital swelling ENT exam: Present: normal exam, mucous membranes moist Neck exam: Present: normal inspection. Absent: tenderness, meningismus, lymphadenopathy Respiratory exam: Present: respiratory distress, wheezes, decreased breath sounds, prolonged expiratory. Absent: rales, rhonchi, stridor Cardiovascular Exam: Present: normal rhythm, tachycardia, normal heart sounds. Absent: systolic murmur, diastolic murmur, rubs, gallop, clicks GI/Abdominal exam: Present: soft, normal bowel sounds. Absent: distended, tenderness, guarding, rebound, rigid Extremities exam: Present: normal inspection, full ROM, normal capillary refill. Absent: tenderness, pedal edema, joint swelling, calf tenderness Back exam: Present: normal inspection Neurological exam: Present: alert, oriented X3, CN II-XII intact Psychiatric exam: Present: normal affect, normal mood Skin exam: Present: warm, dry, intact, normal color. 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 ] Respiratory 118 H Rate Blood Pressure 150/82 O2 Sat by Pulse 98 Oximetry 05/17/18 05/17/18 05/17/18 19:32 20:29 20:43 Temperature Pulse Rate 118 H 98 93 Pulse Rate [ Software Design Engineer ] Respiratory Rate Blood Pressure O2 Sat by Pulse Oximetry 05/17/18 20:57 Temperature 98.0 F Pulse Rate 117 H Pulse Rate [ Software Design Engineer ] Respiratory 19 Rate Blood Pressure 129/69 O2 Sat by Pulse 100 Oximetry - Reevaluation(s) Reevaluation #1: Medical record is reviewed and noncontributory No improvement with shortness of breath Medical Decision Making - Medical Decision Making 42 female the ER for evaluation. Patient has a for evaluation of shortness of breath. Lower extremity edema. Patient has history of COPD we'll admit for breathing treatments and COPD exacerbation - Lab Data Result diagrams: 05/18/18 02:53 05/18/18 02:53 Lab Results 05/17/18 05/17/18 05/17/18 Range/Units 19:40 19:40 19:40 WBC 7.2 (3.8-10.6) k/uL RBC 5.00 (3.80-5.40) m/uL Hgb 14.3 (11.4-16.0) gm/dL Hct 44.9 (34.0-46.0) % MCV 89.8 (80.0-100.0) fL MCH 28.7 (25.0-35.0) pg MCHC 31.9 (31.0-37.0) g/dL RDW 14.0 (11.5-15.5) % Plt Count 244 (150-450) k/uL Neutrophils % 47 % Lymphocytes % 40 % Monocytes % 7 % Eosinophils % 3 % Basophils % 1 % Neutrophils # 3.4 (1.3-7.7) k/uL Lymphocytes # 2.8 (1.0-4.8) k/uL Monocytes # 0.5 (0-1.0) k/uL Eosinophils # 0.2 (0-0.7) k/uL Basophils # 0.0 (0-0.2) k/uL PT (9.0-12.0) sec INR (<1.2) APTT (22.0-30.0) sec Sodium 138 (137-145) mmol/L Potassium 4.0 (3.5-5.1) mmol/L Chloride 104 (98-107) mmol/L Carbon Dioxide 26 (22-30) mmol/L Anion Gap 8 mmol/L BUN 13 (7-17) mg/dL Creatinine 0.79 (0.52-1.04) mg/dL Est GFR (CKD-EPI)AfAm >90 (>60 ml/min/1.73 sqM) Est GFR (CKD-EPI)NonAf >90 (>60 ml/min/1.73 sqM) Glucose 198 H (74-99) mg/dL Calcium 9.2 (8.4-10.2) mg/dL Magnesium 1.9 (1.6-2.3) mg/dL Total Bilirubin 0.4 (0.2-1.3) mg/dL AST 24 (14-36) U/L ALT 37 (9-52) U/L Alkaline Phosphatase 71 (38-126) U/L Troponin I (0.000-0.034) ng/mL NT-Pro-B Natriuret Pep 101 pg/mL Total Protein 7.0 (6.3-8.2) g/dL Albumin 4.1 (3.5-5.0) g/dL 05/17/18 05/17/18 Range/Units 19:40 19:40 WBC (3.8-10.6) k/uL RBC (3.80-5.40) m/uL Hgb (11.4-16.0) gm/dL Hct (34.0-46.0) % MCV (80.0-100.0) fL MCH (25.0-35.0) pg MCHC (31.0-37.0) g/dL RDW (11.5-15.5) % Plt Count (150-450) k/uL Neutrophils % % Lymphocytes % % Monocytes % % Eosinophils % % Basophils % % Neutrophils # (1.3-7.7) k/uL Lymphocytes # (1.0-4.8) k/uL Monocytes # (0-1.0) k/uL Eosinophils # (0-0.7) k/uL Basophils # (0-0.2) k/uL PT 13.5 H (9.0-12.0) sec INR 1.3 H (<1.2) APTT 26.2 (22.0-30.0) sec Sodium (137-145) mmol/L Potassium (3.5-5.1) mmol/L Chloride (98-107) mmol/L Carbon Dioxide (22-30) mmol/L Anion Gap mmol/L BUN (7-17) mg/dL Creatinine (0.52-1.04) mg/dL Est GFR (CKD-EPI)AfAm (>60 ml/min/1.73 sqM) Est GFR (CKD-EPI)NonAf (>60 ml/min/1.73 sqM) Glucose (74-99) mg/dL Calcium (8.4-10.2) mg/dL Magnesium (1.6-2.3) mg/dL Total Bilirubin (0.2-1.3) mg/dL AST (14-36) U/L ALT (9-52) U/L Alkaline Phosphatase (38-126) U/L Troponin I <0.012 (0.000-0.034) ng/mL NT-Pro-B Natriuret Pep pg/mL Total Protein (6.3-8.2) g/dL Albumin (3.5-5.0) g/dL - EKG Data -: EKG Interpreted by Me (EKG shows sinus rhythm rate of 99, MA 172, QRS 80, QTC 482) - Radiology Data Radiology results: report reviewed (Chest x-rays negative for acute disease), image reviewed Disposition Clinical Impression: Acute exacerbation of chronic obstructive airways disease, Congestive heart failure, Diastolic congestive heart failure Disposition: ADMITTED IP TO THIS HOSP Condition: Fair Is patient prescribed a controlled substance at d/c from ED?: No
--- NOTE | 2018-05-17 19:54 | XR ---
EXAMINATION TYPE: XR chest 1V portable DATE OF EXAM: 05/17/2018 COMPARISON: 02/09/2018 INDICATION: Short of breath with exertion TECHNIQUE: Single frontal view of the chest is obtained. FINDINGS: The heart size is normal. The pulmonary vasculature is normal. The lungs are clear. IMPRESSION: 1. No acute pulmonary process.
[2018-05-17 19:59] LABS: Basophils % (A) 1 %; Eosinophils # (A) 0.2 k/uL (0-0.7); Eosinophils % (A) 3 %; HCT 44.9 % (34.0-46.0); HGB 14.3 gm/dL (11.4-16.0); Lymphocytes # (A) 2.8 k/uL (1.0-4.8); Lymphocytes % (A) 40 %; MCH 28.7 pg (25.0-35.0); MCHC 31.9 g/dL (31.0-37.0); MCV 89.8 fL (80.0-100.0); Mean Platelet Volume 7.6; Monocytes # (A) 0.5 k/uL (0-1.0); Monocytes % (A) 7 %; Neutrophils # (A) 3.4 k/uL (1.3-7.7); Neutrophils % (A) 47 %; Platelet Count 244 k/uL (150-450); WBC 7.2 k/uL (3.8-10.6)
[2018-05-17 20:09] LABS: ALT 37 U/L (9-52); AST 24 U/L (14-36); Albumin 4.1 g/dL (3.5-5.0); Alkaline Phosphatase 71 U/L (38-126); Anion Gap 8 mmol/L; Blood Urea Nitrogen 13 mg/dL (7-17); Calcium 9.2 mg/dL (8.4-10.2); Carbon Dioxide 26 mmol/L (22-30); Chloride 104 mmol/L (98-107); Glucose 198 mg/dL (74-99); Magnesium 1.9 mg/dL (1.6-2.3); Sodium 138 mmol/L (137-145); Total Bilirubin 0.4 mg/dL (0.2-1.3)
[2018-05-17 20:21] LABS: INR 1.3 (<1.2); Partial Thromboplastin Time 26.2 sec (22.0-30.0); Prothrombin Time 13.5 sec (9.0-12.0)
[2018-05-17] MEDS ORDERED: methylPREDNISolone SOD SUCCI 125 MG/2 ML VIAL IV STA (20:21)
[2018-05-17] MEDS ORDERED: IPRATROPIUM-ALBUTEROL 3 ML NEB INHALATION STA (20:21)
[2018-05-17 22:03] VITALS: RESP 18
[2018-05-17 22:14] LABS: Glucose,Whole Blood 266 mg/dL (75-99)
[2018-05-17] MEDS: methylPREDNISolone SOD SUCCI 125 MG/2 ML VIAL IV SCH (23:40)
[2018-05-17] MEDS ORDERED: diphenhydrAMINE 25 MG CAP PO PRN (23:49)
[2018-05-17] MEDS ORDERED: ACETAMINOPHEN TAB 325 MG TAB PO PRN (23:49)
[2018-05-17] MEDS ORDERED: ALBUTEROL NEBULIZED 2.5 MG/3 ML INHALATION PRN (23:49)
[2018-05-18] MEDS ORDERED: ATORVASTATIN 20 MG TAB PO SCH ×2 (00:28→21:00)
[2018-05-18] MEDS ORDERED: traZODone HCL 50 MG TAB PO PRN (00:30)
[2018-05-18] MEDS: metFORMIN 500 MG TAB PO SCH ×2 (01:19→10:01)
[2018-05-18] MEDS: GABAPENTIN 300 MG CAP PO SCH ×2 (01:20→10:00)
[2018-05-18] MEDS: IBUPROFEN 600 MG TAB PO SCH ×2 (01:21→10:01)
[2018-05-18] MEDS: METOPROLOL TARTRATE 25 MG TAB PO SCH ×2 (01:21→10:01)
[2018-05-18] MEDS: INSULIN ASPART (NovoLOG) 100 UNIT/ML VIAL SQ SCH ×3 (01:22→12:05)
[2018-05-18] MEDS: COLCHICINE 0.6 MG EACH PO SCH ×2 (01:32→09:51)
[2018-05-18] MEDS: glipiZIDE 10 MG TAB PO SCH ×2 (01:32→09:51)
[2018-05-18 03:13] LABS: Basophils % (A) 0 %; Eosinophils % (A) 1 %; HCT 42.9 % (34.0-46.0); HGB 13.9 gm/dL (11.4-16.0); Lymphocytes # (A) 0.5 k/uL (1.0-4.8); Lymphocytes % (A) 5 %; MCH 28.9 pg (25.0-35.0); MCHC 32.4 g/dL (31.0-37.0); MCV 89.3 fL (80.0-100.0); Mean Platelet Volume 6.8; Monocytes # (A) 0.2 k/uL (0-1.0); Monocytes % (A) 2 %; Neutrophils # (A) 8.7 k/uL (1.3-7.7); Neutrophils % (A) 93 %; Platelet Count 260 k/uL (150-450); RBC 4.81 m/uL (3.80-5.40); RDW 13.7 % (11.5-15.5); WBC 9.4 k/uL (3.8-10.6)
[2018-05-18 03:32] LABS: Anion Gap 13 mmol/L; Blood Urea Nitrogen 15 mg/dL (7-17); C Reactive Protein <5.0 mg/L (<10.0); Calcium 9.2 mg/dL (8.4-10.2); Carbon Dioxide 22 mmol/L (22-30); Chloride 101 mmol/L (98-107); Glucose 419 mg/dL (74-99); Potassium 4.2 mmol/L (3.5-5.1); Sodium 136 mmol/L (137-145)
[2018-05-18 04:05] LABS: Erythrocyte Sedimentation Rate 8 mm/hr (0-20)
[2018-05-18] MEDS ORDERED: FUROSEMIDE 10 MG/ML 4 ML VIAL IV SCH (06:00)
[2018-05-18] MEDS: methylPREDNISolone SOD SUCCI 125 MG/2 ML VIAL IV SCH (06:07)
[2018-05-18 06:46] LABS: Glucose,Whole Blood 319 mg/dL (75-99)
[2018-05-18] MEDS: IPRATROPIUM-ALBUTEROL 3 ML NEB INHALATION SCH ×2 (07:00→11:01)
[2018-05-18] MEDS ORDERED: INSULIN ASPART (NovoLOG) 100 UNIT/ML VIAL SQ SCH (07:30)
--- NOTE | 2018-05-18 08:19 | HP ---
HISTORY AND PHYSICAL CHIEF COMPLAINTS: Shortness of breath as well as leg swelling. HISTORY OF PRESENT ILLNESS: This is a 42-year-old woman with a past medical history of multiple medical problems including history of CHF, history of CVA, TIA, diabetes, DVT, history of GERD, depression, hypertension, DJD, history of sleep apnea, being followed by Dr. Mary Mireles in the outpatient setting is complaining of increasing shortness of breath. The patient also had bilateral leg swelling and patient came to [facility] and admitted for further evaluation and treatment. There is no history of fever or rigors. No history of headache, loss consciousness, seizures at this time. The patient was diagnosed with pericarditis previously in the history. Currently, also the patient had a history of chest pain just increasing with respiration. PAST MEDICAL HISTORY: History of CHF, history of CVA, TIA, diabetes, DVT, GERD, hypertension, hyperlipidemia. MEDICATIONS: Prior to admission include home medications are: 1. Metformin 1000 mg p.o. b.i.d. 2. Actos 50 mg p.o. daily. 3. Motrin 600 mg t.i.d. 4. Prozac 20 mg daily. 5. Vitamin D2 one thousand q. Friday. 6. Colchicine 0.6 daily. 7. Aspirin 81 mg. 8. Ventolin 2.5 q.i.d. p.r.n. 9. Requip 0.25 mg q.h.s. 10.Klor-Con 20 mg daily. 11.Metoprolol 25 mg p.o. daily. 12.Prinivil 10 mg p.o. daily. 13.Neurontin 600 mg p.o. t.i.d. 14.Lasix 20 mg p.o. daily. 15.Iron 325 mg p.o. daily. 16.Trazodone 50 mg q.h.s. p.r.n. 17.Crestor 10 mg q.h.s. 18.Zantac 150 mg p.o. daily. 19.Glucotrol XL 10 mg p.o. b.i.d. 20.Coumadin 6 mg p.o. daily. 21.Tylenol 650 q.6 p.r.n. #. 23.Ventolin 200 two puffs q.6 p.r.n. ALLERGIES: PENICILLIN. FAMILY HISTORY: History of cancer, CVA, TIA in the family. SOCIAL HISTORY: History of smoking, no history of alcohol. REVIEW OF SYSTEMS: ENT: No diminished hearing or diminished vision. CARDIOVASCULAR: No angina, palpitations. RESPIRATORY: As mentioned earlier. GI: No nausea. : No dysuria. NERVOUS SYSTEM: No numbness or weakness. ALLERGY/IMMUNOLOGY: No asthma or hay fever. MUSCULOSKELETAL: As mentioned earlier. HEMATOLOGY: No history of anemia. ENDOCRINE: No diabetes or hypothyroidism. CONSTITUTIONAL: As mentioned earlier. DERMATOLOGY: Negative. RHEUMATOLOGY: Negative. PSYCHIATRY: As mentioned earlier. PHYSICAL EXAMINATION: Alert and oriented x3, pulse 117, blood pressure is 129/69, respiration 19, temperature 98 degrees, pulse ox 100% on room air. HEENT: Conjunctivae normal. NECK: No jugular venous congestion. CARDIOVASCULARS SYSTEM: S1, S2. RESPIRATORY: Breath sounds diminished at the bases, a few scattered rhonchi, no crackles. ABDOMEN: Soft, obese, nontender. LEGS: Bilateral leg edema, minimal. NERVOUS SYSTEM: Higher functions as mentioned earlier, moves all 4 limbs, no focal motor deficits. LYMPHATICS: No lymph node enlargement in the neck or axillae. SKIN: No ulcer, rash, bleeding. JOINTS: No active arthrology. LABS: CBC within normal limits. INR 1.3. The BNP is only 101 and chest x-ray showed no acute pulmonary pulmonary process. ASSESSMENT: 1. Shortness of breath for evaluation, congestive heart failure, unlikely. 2. Bilateral leg swelling. 3. History of congestive heart failure. 4. The patient was diagnosed with pericarditis previously in the history currently, also the patient had history of chest pain which is increasing with respiration. 5. Rule out acute on chronic recurrent pericarditis. 6. Hyperlipidemia. 7. Diabetes mellitus type 2. 8. Cerebrovascular vascular accident, transient ischemia, CVA, TIA. 9. History of congestive heart failure. 10.History of deep vein thrombosis. 11.Gastroesophageal reflux disease. 12.Hypertension. 13.History of degenerative joint disease. 14.History of sleep apnea. RECOMMENDATION AND DISCUSSION: This 42-year-old woman who presented with multiple complex medical issues, we will monitor the patient closely continue the current management and treatment recommend foot microinfarction. The patient does not have features of any active CHF at this time. I would recommend a 2D echo with Doppler to identify any evidence of any pericardial effusion. Otherwise, cardiology consultation. Monitor blood sugars closely. Resume the home medications. Guarded prognosis. A copy of this will be forwarded to Dr. Mary Mireles, who is the primary physician. GINIL / RON: [id number] / MTDD
[2018-05-18] MEDS ORDERED: GABAPENTIN 300 MG CAP PO SCH (09:00)
[2018-05-18] MEDS ORDERED: METOPROLOL TARTRATE 25 MG TAB PO SCH (09:00)
[2018-05-18] MEDS ORDERED: ASPIRIN 81 MG PO SCH (09:00)
[2018-05-18] MEDS ORDERED: COLCHICINE 0.6 MG EACH PO SCH (09:00)
[2018-05-18] MEDS ORDERED: ERGOCALCIFEROL 50,000 UNIT CAP PO SCH (09:00)
[2018-05-18] MEDS ORDERED: LISINOPRIL 10 MG TAB PO SCH (09:00)
[2018-05-18] MEDS ORDERED: metFORMIN 500 MG TAB PO SCH (09:00)
[2018-05-18] MEDS ORDERED: PIOGLITAZONE 15 MG TAB PO SCH (09:00)
[2018-05-18] MEDS ORDERED: glipiZIDE 10 MG TAB PO SCH (09:00)
[2018-05-18] MEDS ORDERED: FLUoxetine HCL 20 MG CAP PO SCH (09:00)
[2018-05-18] MEDS ORDERED: FAMOTIDINE 20 MG TAB PO SCH (09:00)
[2018-05-18] MEDS ORDERED: IBUPROFEN 600 MG TAB PO SCH (09:00)
[2018-05-18] MEDS ORDERED: FERROUS SULFATE 325 MG TAB PO SCH (09:00)
[2018-05-18] MEDS ORDERED: POTASSIUM CHLORIDE ER 20 MEQ TAB.ER PO SCH (09:00)
--- NOTE | 2018-05-18 11:03 | ECHOF ---
Referral Reason:pericarditis MEASUREMENTS -------- HEIGHT: 170.2 cm WEIGHT: 117.9 kg BP: 137/73 RVIDd: 2.6 cm (< 3.3) IVSd: 1.1 cm (0.6 - 1.1) LVIDd: 5.1 cm (3.9 - 5.3) LVPWd: 1.6 cm (0.6 - 1.1) IVSs: 1.4 cm LVIDs: 3.5 cm LVPWs: 1.6 cm LA Diam: 3.7 cm (2.7 - 3.8) Ao Diam: 3.2 cm (2.0 - 3.7) AV Cusp: 1.8 cm (1.5 - 2.6) LA Diam: 3.8 cm (2.7 - 3.8) MV EXCURSION: 18.395 mm (> 18.000) MV EF SLOPE: 87 mm/s (70 - 150) EPSS: 0.6 cm MV E Quinten: 0.62 m/s MV DecT: 280 ms MV A Quinten: 0.86 m/s MV E/A Ratio: 0.72 RAP: 5.00 mmHg RVSP: 21.11 mmHg FINDINGS -------- Sinus rhythm. This was a technically adequate study. LV size, wall thickness and systolic function are normal, with an EF greater than 55%. The left malcolm tricular size is normal. The right ventricle is normal in size. The left atrial size is normal. The right atrial size is normal. Trace to mild aortic regurgitation. Mild mitral annular calcification present. Mild mitral regurgitation is present. Mild tricuspid regurgitation present. There is no evidence of pulmonary hypertension. The right v entricular systolic pressure, as measured by Doppler, is 21.11mmHg. Trace/mild (physiologic) pulmonic regurgitation. The aortic root size is normal. There is no pericardial effusion. CONCLUSIONS -------- 1. LV size, wall thickness and systolic function are normal, with an EF greater than 55%. 2. The left ventricular size is normal. 3. The right ventricle is normal in size. 4. The left atrial size is normal. 5. The right atrial size is normal. 6. Trace to mild aortic regurgitation. 7. Mild mitral annular calcification present. 8. Mild mitral regurgitation is present. 9. Mild tricuspid regurgitation present. 10. There is no evidence of pulmonary hypertension. 11. The right ventricular systolic pressure, as measured by Doppler, is 21.11mmHg. 12. Trace/mild (physiologic) pulmonic regurgitation. 13. The aortic root size is normal. 14. There is no pericardial effusion. GRUBBER: Lani Magaña RDCS
[2018-05-18] MEDS ORDERED: predniSONE 10 MG TAB PO SCH (11:15)
--- NOTE | 2018-05-18 11:26 | P.CRDCN ---
History of Present Illness History of present illness: This is a pleasant 42-year-old female past medical history significant for hypertension, dyslipidemia, obstructive sleep apnea, arthritis, gastroesophageal reflux disease, neuropathy and history of blood clots in her arms in the past. She follows in the office with Dr. Hung. We have been asked to see her in consultation secondary to symptoms of chest pain. She states in the past when she lived in [place] she was diagnosed with heart failure and started on Lasix secondary to chronic peripheral edema and her arms and legs. Since moving to [place] her dose of Lasix was decreased to 40 mg daily. Starting approximately of last week she states she has had swelling in her hands and bilateral legs. She states her readings were so tight that she was unable to remove them. She denies symptoms of exertional shortness of breath, PND or orthopnea. She states there's been no change in her diet and she has not had an increased salt intake. She was seen here in January and at that time was diagnosed with pericarditis and started on colchicine and ibuprofen. She continues to complain of pleuritic type chest discomfort since that time with no improvement. In March of this year she underwent a hysterectomy and postoperatively she was started on Coumadin secondary to her history of DVT in the past. Echocardiogram obtained reveals preserved left ventricular systolic function with ejection fraction 55% no evidence of pericardial effusion. She was gotten 1 dose of IV Lasix in the emergency department. Documentation reveals an output of 1700 mL and a 1.9 kg weight loss. EKG reveals sinus mechanism with no acute ST T wave abnormalities noted. No evidence of pericarditis on EKG. Chest x-ray is negative for an acute cardiopulmonary process. Laboratory data reviewed, WBC 9.4, hemoglobin 13.9, platelets 260, INR 1.3, sodium 136, potassium 4.2, creatinine 0.67, magnesium 1.9, cardiac enzymes negative 3, C-reactive protein less than 5, NT proBNP 101, ESR 8. Current cardiac medications include rosuvastatin 10 mg daily, Lasix 20 mg daily , lisinopril 10 mg daily, Lopressor 25 mg twice a day, aspirin 81 mg daily. Most recent stress test performed January 2018 reveals poor exercise tolerance , mild EKG changes in response to exercise and normal echocardiographic response to exercise indicating a normal stress echocardiogram. At the time of my exam: CONSTITUTIONAL: Denies fever. Denies chills. EYES: Denies blurred vision. Denies vision changes. Denies eye pain. EARS, NOSE, MOUTH & THROAT: Denies headache. Denies sore throat. Denies ear pain. CARDIOVASCULAR: Denies chest pain. Denies shortness of breath. Denies orthopnea. Denies PND. Denies palpitations. RESPIRATORY: Denies cough. GASTROINTESTINAL: Denies abdominal pain. Denies diarrhea. Denies constipation. Denies nausea. Denies vomiting. MUSCULOSKELETAL: Complains of pain to touch bilateral lower extremities. INTEGUMENTARY: Denies pruitis. Denies rash. NEUROLOGIC: Denies numbness. Denies tingling. Denies weakness. PSYCHIATRIC: Denies anxiety. Denies depression. ENDOCRINE: Denies fatigue. Denies weight change. Denies polydipsia. Denies polyurina. GENITOURINARY: Denies burning, hematuria or urgency with micturation. HEMATOLOGIC: Denies history of anemia. Denies bleeding. Blood pressure 119/77 heart rate 87 afebrile maintaining oxygen saturation on room air GENERAL: This is a 42-year-old female in no apparent distress at the time of my examination. Obese. HEENT: Head is atraumatic, normocephalic. Pupils are equal, round. Sclerae anicteric. Conjunctivae are clear. Mucous membranes of the mouth are moist. Neck is supple. There is no jugular venous distention. No carotid bruit is heard. LUNGS: Clear to auscultation no wheezes, rales or rhonchi. No chest wall tenderness is noted on palpation or with deep breathing. HEART: Regular rate and rhythm without murmurs, rubs or gallops. S1 and S2 heard. ABDOMEN: Soft, nontender. Bowel sounds are heard. No organomegaly noted. EXTREMITIES: No evidence of peripheral edema and no calf tenderness noted. VASCULAR: Radial and dorsalis pedis pulses palpated, no evidence of clubbing. NEUROLOGIC: Patient is awake, alert and oriented x3. ASSESSMENT Pleuritic chest pain, not indicative of angina. An acute coronary event has been ruled out. Generalized swelling of all 4 extremities at home, resolved prior to the time of my exam Hypertension Dyslipidemia PLAN An acute coronary event has been ruled out. Discontinue colchicine and Motrin as there is no evidence of acute pericarditis. Discontinue IV lasix. Initiate on PO lasix 40 mg PO BID. Stable for discharge from a cardiac perspective. Follow up with Dr. Hung upon discharge. Thank you kindly for this consultation. Nurse Practitioner note has been reviewed, I agree with a documented findings and plan of care. Patient was seen and examined. Past Medical History Past Medical History: Blood Disorder, Heart Failure, CVA/TIA, Diabetes Mellitus , Deep Vein Thrombosis (DVT), GERD/Reflux, Hyperlipidemia, Hypertension, Osteoarthritis (OA), Sleep Apnea/CPAP/BIPAP Additional Past Medical History / Comment(s): neuropathy, RLS, chronic anemia, "thrombocytosis" hx of blood clots both arms, MRSA infection on face, "takes metoprolol for rapid heart rate",hx uterine fibroids,pt no longer needs cpap machine-after losing 162#., raynauds, PAD, pericarditis History of Any Multi-Drug Resistant Organisms: MRSA Date of last positivie culture/infection: 12/2017 MDRO Source:: face Past Surgical History: Cholecystectomy, Hysterectomy Additional Past Surgical History / Comment(s): 2 right knee surgeries, nose reconstruction, bilcarpal tunnel release, laser eye surgery, [id number] , ovarian cyst removal, sepideh cataracts removed Past Anesthesia/Blood Transfusion Reactions: No Reported Reaction Past Psychological History: Anxiety, Bipolar, Depression, PTSD Additional Psychological History / Comment(s): lives with rose other destinee and her 2 grandchildren Smoking Status: Never smoker Past Alcohol Use History: Rare Past Drug Use History: None Reported - Past Family History Mother Family Medical History: Cancer, CVA/TIA Father Family Medical History: Cancer, CVA/TIA Medications and Allergies Home Medications Medication Instructions Recorded Confirmed Type Albuterol Inhaler [Ventolin Hfa 1 - 2 puff INHALATION RT-Q6H PRN 12/23/17 History Inhaler] Albuterol Nebulized [Ventolin 2.5 mg INHALATION RT-QID PRN 12/23/17 05/17/18 History Nebulized] Aspirin 81 mg PO DAILY 12/23/17 05/17/18 History Ergocalciferol [Vitamin D2 50,000 unit PO MO 12/23/17 05/17/18 History (DRISDOL)] Ferrous Sulfate [Iron] 325 mg PO DAILY 12/23/17 05/17/18 History Furosemide [Lasix] 20 mg PO DAILY 12/23/17 05/17/18 History Lisinopril [Prinivil] 10 mg PO DAILY 12/23/17 05/17/18 History Metoprolol Tartrate 25 mg PO BID 12/23/17 05/17/18 History Potassium Chloride [Klor-Con 20] 20 meq PO DAILY 12/23/17 05/17/18 History Ranitidine HCl [Zantac] 150 mg PO DAILY 12/23/17 05/17/18 History Rosuvastatin [Crestor] 10 mg PO HS 12/23/17 05/17/18 History rOPINIRole HCL [Requip] 0.25 mg PO HS 12/23/17 05/17/18 History Gabapentin [Neurontin] 600 mg PO TID 01/14/18 05/17/18 History diphenhydrAMINE [Benadryl] 25 mg PO DAILY PRN 01/14/18 05/17/18 History metFORMIN HCL [Glucophage] 1,000 mg PO BID 01/14/18 05/17/18 History Colchicine [Colcrys] 0.6 mg PO BID #14 each 02/11/18 05/17/18 Rx Ibuprofen [Motrin] 600 mg PO TID #21 tab 02/11/18 05/17/18 Rx Acetaminophen Tab [Tylenol Tab] 650 mg PO Q6H PRN 05/17/18 05/17/18 History FLUoxetine HCL [PROzac] 20 mg PO DAILY 05/17/18 05/17/18 History Pioglitazone HCl [Actos] 15 mg PO DAILY 05/17/18 05/17/18 History Warfarin Sodium [Coumadin] 6 mg PO DAILY 05/17/18 05/17/18 History glipiZIDE XL [Glucotrol XL] 10 mg PO BID 05/17/18 05/17/18 History traZODone HCL 50 mg PO HS PRN 05/17/18 05/17/18 History Allergies Allergy/AdvReac Type Severity Reaction Status Date / Time Penicillins Allergy Anaphylaxis Verified 05/17/18 21:29 Physical Exam Vitals: Vital Signs Temp Pulse Pulse Pulse Resp BP BP 05/18/18 07:49 98.2 F 87 18 05/18/18 07:09 78 05/18/18 07:00 74 05/18/18 03:34 98.5 F 93 18 137/73 05/18/18 03:21 18 05/17/18 22:03 98.2 F 110 H 18 111/59 05/17/18 21:52 19 05/17/18 20:57 98.0 F 117 H 19 129/69 05/17/18 20:43 93 05/17/18 20:29 98 05/17/18 19:32 118 H 05/17/18 19:24 112 H 05/17/18 18:56 110 H 05/17/18 18:52 98.3 F 69 118 H 150/82 BP Pulse Ox 05/18/18 07:49 119/77 95 05/18/18 07:09 05/18/18 07:00 05/18/18 03:34 94 L 05/18/18 03:21 05/17/18 22:03 99 05/17/18 21:52 05/17/18 20:57 100 05/17/18 20:43 05/17/18 20:29 05/17/18 19:32 05/17/18 19:24 05/17/18 18:56 05/17/18 18:52 98 Intake and Output 05/17/18 05/18/18 05/18/18 22:59 06:59 14:59 Intake Total 400 Output Total 800 Balance -400 Intake: Oral 400 Output: Urine 800 Other: Voiding Method Toilet Toilet Weight 117.934 kg Results 05/18/18 02:53 05/18/18 02:53 Cardiac Enzymes 05/17/18 05/17/18 05/18/18 Range/Units 19:40 19:40 02:53 AST 24 (14-36) U/L Troponin I <0.012 <0.012 (0.000-0.034) ng/mL Coagulation 05/17/18 Range/Units 19:40 PT 13.5 H (9.0-12.0) sec APTT 26.2 (22.0-30.0) sec CBC 05/17/18 05/18/18 Range/Units 19:40 02:53 WBC 7.2 9.4 (3.8-10.6) k/uL RBC 5.00 4.81 (3.80-5.40) m/uL Hgb 14.3 13.9 (11.4-16.0) gm/dL Hct 44.9 42.9 (34.0-46.0) % Plt Count 244 260 (150-450) k/uL Comprehensive Metabolic Panel 05/17/18 05/18/18 Range/Units 19:40 02:53 Sodium 138 136 L (137-145) mmol/L Potassium 4.0 4.2 (3.5-5.1) mmol/L Chloride 104 101 (98-107) mmol/L Carbon Dioxide 26 22 (22-30) mmol/L BUN 13 15 (7-17) mg/dL Creatinine 0.79 0.67 (0.52-1.04) mg/dL Glucose 198 H 419 H (74-99) mg/dL Calcium 9.2 9.2 (8.4-10.2) mg/dL AST 24 (14-36) U/L ALT 37 (9-52) U/L Alkaline Phosphatase 71 (38-126) U/L Total Protein 7.0 (6.3-8.2) g/dL Albumin 4.1 (3.5-5.0) g/dL Current Medications Generic Name Dose Route Start Last Admin Trade Name Freq PRN Reason Stop Dose Admin Acetaminophen 650 mg 05/17/18 23:49 Tylenol Tab PO Q6H PRN Pain Albuterol Sulfate 2.5 mg 05/17/18 23:49 Ventolin Nebulized INHALATION RT-Q6H PRN Shortness Of Breath Albuterol/Ipratropium 3 ml 05/18/18 08:00 05/18/18 07:00 Duoneb 0.5 Mg-3 Mg/3 Ml Soln INHALATION 3 ml RT-QID LINDSAY Administration Aspirin 81 mg 05/18/18 09:00 Aspirin PO DAILY [facility] Atorvastatin Calcium 10 mg 05/18/18 00:28 05/18/18 01:20 Lipitor PO 10 mg HS LINDSAY Administration Colchicine 0.6 mg 05/18/18 00:21 05/18/18 01:32 Colcrys PO 0.6 mg BID [facility] Administration Diphenhydramine HCl 25 mg 05/17/18 23:49 Benadryl PO DAILY PRN Allergy Symptoms Ergocalciferol 50,000 unit 05/18/18 09:00 Vitamin D2 PO Mo@0900 [facility] Famotidine 20 mg 05/18/18 09:00 Pepcid PO DAILY [facility] Ferrous Sulfate 325 mg 05/18/18 09:00 Feosol PO DAILY [facility] Fluoxetine HCl 20 mg 05/18/18 09:00 Prozac PO DAILY [facility] Furosemide 40 mg 05/18/18 06:00 05/18/18 06:08 Lasix IV 40 mg Q12H LINDSAY Administration Gabapentin 600 mg 05/18/18 00:22 05/18/18 01:20 Neurontin PO 600 mg TID [facility] Administration Glipizide 10 mg 05/18/18 00:23 05/18/18 01:32 Glucotrol PO 10 mg BID [facility] Administration Ibuprofen 600 mg 05/18/18 00:30 05/18/18 01:21 Motrin PO 600 mg TID [facility] Administration Insulin Aspart 0 unit 05/18/18 00:24 05/18/18 01:22 Novolog SQ 9 unit ACHS [facility] Administration Protocol Lisinopril 10 mg 05/18/18 09:00 Zestril PO DAILY [facility] Metformin HCl 1,000 mg 05/18/18 00:24 05/18/18 01:19 Glucophage PO 1,000 mg BID [facility] Administration Methylprednisolone Sodium Succinate 60 mg 05/18/18 00:00 05/18/18 06:07 Solu-Medrol IV 60 mg Q6HR [facility] Administration Metoprolol Tartrate 25 mg 05/18/18 00:27 05/18/18 01:21 Lopressor PO 25 mg BID [facility] Administration Pioglitazone HCl 15 mg 05/18/18 09:00 Actos PO DAILY [facility] Potassium Chloride 20 meq 05/18/18 09:00 K-Dur 20 PO DAILY [facility] Ropinirole HCl 0.25 mg 05/18/18 00:28 05/18/18 01:32 Requip PO 0.25 mg HS LINDSAY Administration Trazodone HCl 50 mg 05/18/18 00:30 05/18/18 01:21 Desyrel PO 50 mg HS PRN Administration Pain Warfarin Sodium 6 mg 05/18/18 18:00 Coumadin PO DAILY@1800 [facility] Intake and Output 05/17/18 05/18/18 05/18/18 22:59 06:59 14:59 Intake Total 400 Output Total 800 Balance -400 Intake: Oral 400 Output: Urine 800 Other: Voiding Method Toilet Toilet Weight 117.934 kg 05/18/18 02:53 05/18/18 02:53
[2018-05-18 11:48] LABS: Glucose,Whole Blood 336 mg/dL (75-99)
[2018-05-18 12:21] VITALS: BP 143/78; PULSE 105; TEMP 98.5
[2018-05-18] MEDS ORDERED: INSULIN DETEMIR (LEVEMIR) 100 UNIT/ML SYR SQ SCH (14:30)
[2018-05-18 15:13] VITALS: BMI 40.0
[2018-05-18] MEDS ORDERED: FUROSEMIDE 40 MG TAB PO SCH (16:00)
[2018-05-18] MEDS ORDERED: WARFARIN 3 MG TAB PO SCH (18:00)
[2018-05-18 21:47] LABS: Hemoglobin A1C 9.9 % (4.0-6.0)
--- NOTE | 2018-05-19 08:44 | DS ---
DISCHARGE SUMMARY FINAL DIAGNOSES: 1. Shortness of breath, possibly improved multifactorial, congestive heart failure unlikely, possible chest pain, possible pericarditis. 2. Bilateral leg swelling, improved. 3. History of congestive heart failure. 4. The patient had diagnosis of pericarditis previously. 5. Possible recurrent pericarditis. 6. Hyperlipidemia. 7. Diabetes mellitus type 2. 8. Cerebrovascular accident, transient ischemic attack. 9. History of deep venous thrombosis. 10.History of gastroesophageal reflux disease. 11.Hypertension. 12.History of degenerative joint disease. 13.History of sleep apnea. DISCHARGE DISPOSITION: The patient will be discharged in stable condition with guarded prognosis. HISTORY OF PRESENT ILLNESS: This 42-year-old woman with a past medical history of multiple medical problems admitted with chest pain and some shortness of breath and leg swelling. The patient was evaluated. CHF was thought to be unlikely. Chest x-ray was normal. BNP was also normal, but however, patient treated empirically for pericarditis. Patient improved significantly. The blood sugars were uncontrolled, recommended to start insulin. Otherwise Cardiology cleared the patient for discharge. The 2D echo was noted. On exam, vitals are stable. CARDIOVASCULAR: S1, S2 muffled. ABDOMEN: Soft. NERVOUS SYSTEM: No focal deficits. DISCHARGE ADVICE: 1. Diet is cardiac. 2. Activity limited until followup. 3. Follow up with Dr. uHng as recommended. 4. Follow up with Dr. Mary Mireles as recommended. The medications are 1. Tylenol 650 q.6h p.r.n. 2. Albuterol p.r.n. 3. Aspirin 81 mg daily. 4. Benadryl 25 mg daily p.r.n. 5. Vitamin D2, 50,000 p.o. Friday. 6. Iron 325 mg p.o. daily. 7. Prozac 20 mg daily. 8. Neurontin 600 mg p.o. t.i.d. 9. Glucotrol XL 10 mg p.o. b.i.d. 10.Prinivil 10 mg p.o. daily. 11.Glucophage 1000 mg p.o. b.i.d. 12.Metoprolol 25 mg p.o. b.i.d. 13.Actos 15 mg p.o. daily. 14.Klor-Con 20 mEq p.o. daily. 15.Zantac 150 mg daily. 16.Requip 0.25 mg q.h.s. 17.Crestor 10 mg q.h.s. 18.Trazodone 50 mg q.h.s. 19.Coumadin 6 mg p.o. daily. 20.Lasix 40 mg p.o. daily. 21.Motrin 600 mg p.o. t.i.d. 22.Lantus 20 units subcu daily. 23.DuoNeb q.i.d. and p.r.n. CBC and BMP with Dr. Mary Mireles. Once again, the patient will be discharged in a stable condition with guarded prognosis. MMODL / IJN: [id number] /
== END 2018-05-18 14:56 | disposition home or self-care (01) ==
LOC: EC 18:45 → 1SOBS 20:24
PROVIDERS: ADMIT Hospitalist; ATTEND Hospitalist
DX: R06.02 Shortness of breath (principal); R22.43 Localized swelling, mass and lump, lower limb, bilateral; R07.81 Pleurodynia; I11.0 Hypertensive heart disease with heart failure; I50.30 Unspecified diastolic (congestive) heart failure; E78.5 Hyperlipidemia, unspecified; E11.42 Type 2 diabetes mellitus with diabetic polyneuropathy; K21.9 Gastro-esophageal reflux disease without esophagitis; J44.9 Chronic obstructive pulmonary disease, unspecified; E66.9 Obesity, unspecified; Z68.41 Body mass index [BMI] 40.0-44.9, adult; I73.00 Raynaud's syndrome without gangrene; I73.9 Peripheral vascular disease, unspecified; G47.33 Obstructive sleep apnea (adult) (pediatric); M19.90 Unspecified osteoarthritis, unspecified site; D64.9 Anemia, unspecified; D47.3 Essential (hemorrhagic) thrombocythemia; F43.10 Post-traumatic stress disorder, unspecified; F31.9 Bipolar disorder, unspecified; F41.9 Anxiety disorder, unspecified; Z79.82 Long term (current) use of aspirin; Z79.899 Other long term (current) drug therapy; Z79.01 Long term (current) use of anticoagulants; Z79.84 Long term (current) use of oral hypoglycemic drugs; Z88.0 Allergy status to penicillin; Z86.73 Personal history of transient ischemic attack (TIA), and cerebral infarction without residual deficits; Z86.718 Personal history of other venous thrombosis and embolism; Z86.14 Personal history of Methicillin resistant Staphylococcus aureus infection; Z90.49 Acquired absence of other specified parts of digestive tract; Z98.42 Cataract extraction status, left eye; Z98.41 Cataract extraction status, right eye; Z86.79 Personal history of other diseases of the circulatory system; Z87.891 Personal history of nicotine dependence; Z90.710 Acquired absence of both cervix and uterus; Z82.3 Family history of stroke; Z80.9 Family history of malignant neoplasm, unspecified
CPT/HCPCS: 96376 ×2; 96374; 96375; 99285; 36415; 94640 ×4; 93005; 93306; 83880; 80053; 80048; 85652; 83735; 84484 ×2; 85025 ×2; 85610; 85730; 86140; 83036; 71045; G0378 ×2; J1940 ×2; J2930 ×2; J7512

== ENCOUNTER → 2018-05-21 | Outpatient (CLI) | payer OTHER ==
[2018-05-21 11:25] LABS: HCT 47.2 % (34.0-46.0); HGB 15.4 gm/dL (11.4-16.0); MCH 28.7 pg (25.0-35.0); MCHC 32.7 g/dL (31.0-37.0); MCV 87.8 fL (80.0-100.0); Mean Platelet Volume 7.4; Platelet Count 282 k/uL (150-450); RBC 5.37 m/uL (3.80-5.40); RDW 13.6 % (11.5-15.5); WBC 9.2 k/uL (3.8-10.6)
[2018-05-21 17:12] LABS: Anion Gap 11.6 mmol/L (4.00-12.00); Calcium 10.1 mg/dL (8.7-10.3); Carbon Dioxide 27.4 mmol/L (21.6-31.8); Potassium 4.5 mmol/L (3.5-5.5)
== END | disposition home or self-care (01) ==
LOC: LABWHC1 10:22
PROVIDERS: ATTEND Hospitalist
DX: I31.9 Disease of pericardium, unspecified (principal)
CPT/HCPCS: 36415; 80048; 85027

== ENCOUNTER → 2018-07-29 | Outpatient (CLI) | payer OTHER ==
[2018-07-29 20:02] LABS: Anion Gap 10.1 mmol/L (4.00-12.00); Calcium 9.2 mg/dL (8.7-10.3); Carbon Dioxide 23.9 mmol/L (21.6-31.8); LDL Cholesterol,Calculated 110.4 mg/dL (0.0-131.0); Magnesium 1.8 mg/dL (1.5-2.4); Potassium 4.1 mmol/L (3.5-5.5); VLDL Calculation 35.6 mg/dL (5.00-40.00)
== END | disposition home or self-care (01) ==
LOC: LABWHC1 11:47
PROVIDERS: ATTEND Nurse Practitioner Adult Health
DX: E78.5 Hyperlipidemia, unspecified (principal); I10 Essential (primary) hypertension
CPT/HCPCS: 36415; 80048; 80061; 83735

== ENCOUNTER → 2018-08-14 | Outpatient (CLI) | payer OTHER ==
--- NOTE | 2018-08-14 16:07 | US ---
EXAMINATION TYPE: US venous doppler duplex LE LT DATE OF EXAM: 08/14/2018 3:56 PM COMPARISON: NONE CLINICAL HISTORY: M79.672 pain in left foot. Left foot pain and swelling, off blood thinners for 1 mo nth, history of DVT left arm 2010 SIDE PERFORMED: Left TECHNIQUE: The lower extremity deep venous system is examined utilizing real time linear array sonog refugio with graded compression, doppler sonography and color-flow sonography. VESSELS IMAGED: External Iliac Vein (EIV) Common Femoral Vein Deep Femoral Vein Greater Saphenous Vein * Femoral Vein Popliteal Vein Small Saphenous Vein * Proximal Calf Veins (* superficial vessels) Left Leg: Appears negative for DVT IMPRESSION: No evidence for DVT at this time.
== END | disposition home or self-care (01) ==
LOC: RADUSWWP 15:01
PROVIDERS: ATTEND Family Medicine
DX: M79.672 Pain in left foot (principal); Z86.718 Personal history of other venous thrombosis and embolism

== ENCOUNTER 2018-08-31 13:32 | Emergency (ER) | payer OTHER ==
[2018-08-31 14:20] VITALS: RESP 18
--- NOTE | 2018-08-31 16:40 | CT ---
EXAMINATION: CT brain wo con DATE AND TIME: 08/31/2018 4:25 PM CLINICAL INDICATION: [facility]; hx of fal janneth wang TECHNIQUE: Standard departmental protocol.; 1083.4; COMPARISON: None. FINDINGS: The calvarium is intact. There is no intracranial hemorrhage. There is no intracranial mass or mass effect. No definite new intra-axial or extra-axial attenuation defect. The paranasal sinuses, middle ear cavities, and mastoid sinus air cells are clear. The orbits are unremarkable. IMPRESSION: NO ACUTE PROCESS.
--- NOTE | 2018-08-31 16:41 | XR ---
EXAMINATION: XR chest 2V DATE AND TIME: 08/31/2018 4:25 PM CLINICAL INDICATION: [facility]; Pain TECHNIQUE: Frontal and lateral views COMPARISON: 05/17/2018 FINDINGS: The lungs are clear. The pleural spaces are negative. The cardiac silhouette is not enlarged. The remainder of the mediastinal silhouette is unremarkable. The skeletal structures and soft tissues are negative for acute findings. IMPRESSION: NO ACUTE PROCESS.
--- NOTE | 2018-08-31 17:01 | ED ---
Recheck HPI - General Chief Complaint: Recheck/Abnormal Lab/Rx Stated Complaint: Low BP, Dizzy Time Seen by Provider: 08/31/18 15:06 Source: patient Mode of arrival: ambulatory Limitations: no limitations - History of Present Illness Initial Comments: 43-year-old female presenting for multiple complaints. Patient states that she had a headache that began around 1 PM. She states she does have history of chronic migraines however this felt different and came on suddenly. Patient denies any focal neurological deficits she denies any weakness of the upper lower extremities diplopia or vision loss. She states she did feel slightly dizzy. The time. Patient states she of chest pain last night that lasted a few minutes and went away. Patient states she has history of bilateral upper extremity DVTs. Patient states that she has never had a pulmonary embolism. Patient denies experiencing another episode of chest pain and denies history of coronary artery disease. Patient states she has a distant history of fall last week which denies hitting her head. Patient denies any nausea vomiting epigastric abdominal pain back pain and thoracic back pain LE swelling neck stiffness fever or chills night sweats photophobia or any other associated sy mptoms. Upon arrival patient is ambulatory appearing well. - Related Data Home Medications Medication Instructions Recorded Confirmed Albuterol Inhaler [Ventolin Hfa 1 - 2 puff INHALATION RT-Q6H PRN 12/23/17 08/31/18 Inhaler] Aspirin 81 mg PO DAILY 12/23/17 08/31/18 Ergocalciferol [Vitamin D2 50,000 unit PO MO 12/23/17 08/31/18 (DRISDOL)] Lisinopril [Prinivil] 10 mg PO DAILY 12/23/17 08/31/18 Metoprolol Tartrate 25 mg PO BID 12/23/17 08/31/18 Ranitidine HCl [Zantac] 150 mg PO DAILY 12/23/17 08/31/18 rOPINIRole HCL [Requip] 0.25 mg PO HS 12/23/17 08/31/18 Gabapentin [Neurontin] 600 mg PO TID 01/14/18 08/31/18 diphenhydrAMINE [Benadryl] 25 mg PO DAILY PRN 01/14/18 08/31/18 metFORMIN HCL [Glucophage] 1,000 mg PO BID 01/14/18 08/31/18 FLUoxetine HCL [PROzac] 20 mg PO DAILY 05/17/18 08/31/18 Pioglitazone HCl [Actos] 15 mg PO DAILY 05/17/18 08/31/18 glipiZIDE XL [Glucotrol XL] 10 mg PO BID 05/17/18 08/31/18 Ibuprofen [Motrin] 800 mg PO TID 08/31/18 08/31/18 Rosuvastatin Calcium [Crestor] 40 mg PO DAILY 08/31/18 08/31/18 Spironolactone [Aldactone] 25 mg PO DAILY 08/31/18 08/31/18 traZODone HCL [Desyrel] 100 mg PO HS PRN 08/31/18 08/31/18 Previous Rx's Medication Instructions Recorded Furosemide [Lasix] 40 mg PO DAILY #30 tab 05/18/18 Insulin Glargine [Lantus] 20 unit SQ DAILY #2 vial 05/18/18 Ipratropium-Albuterol Nebulize 3 ml INHALATION RT-QID #120 05/18/18 [Duoneb 0.5 mg-3 mg/3 ml Soln] ampul.neb Allergies Allergy/AdvReac Type Severity Reaction Status Date / Time Penicillins Allergy Anaphylaxis Verified 08/31/18 16:26 Review of Systems ROS Statement: Those systems with pertinent positive or pertinent negative responses have been documented in the HPI. ROS Other: All systems not noted in ROS Statement are negative. Past Medical History Past Medical History: Blood Disorder, Heart Failure, CVA/TIA, Diabetes Mellitus, Deep Vein Thrombosis (DVT), GERD/Reflux, Hyperlipidemia, Hypertension, Osteoarthritis (OA), Sleep Apnea/CPAP/BIPAP Additional Past Medical History / Comment(s): 02-09-18 pt wants pne vaccine this admit. pmh includes:neuropathy, RLS, chronic anemia,"thrombocytosis" hx of blood clots both arms, Hx of a fall and hospitalized at [facility] for MRSA infection on face, "takes metoprolol for rapid heart rate",hx uterine fibroids,pt no longer needs cpap machine-after losing 162#. History of Any Multi-Drug Resistant Organisms: MRSA Date of last positivie culture/infection: 12/2017 MDRO Source:: face Past Surgical History: Cholecystectomy Additional Past Surgical History / Comment(s): 2 right knee surgeries, nose reconstruction, bilcarpal tunnel release, laser eye surgery, [id number] , ovarian cyst removal, sepideh cataracts removed Past Anesthesia/Blood Transfusion Reactions: No Reported Reaction Past Psychological History: Anxiety, Bipolar, Depression, PTSD Smoking Status: Never smoker - Past Family History Mother Family Medical History: Cancer, CVA/TIA Father Family Medical History: Cancer, CVA/TIA General Exam - General Exam Comments Initial Comments: General: The patient is awake and alert, in no distress, and does not appear acutely ill. Eye: +3 mm pupils are equal, round and reactive to light, extra-ocular movements are intact. No nystagmus. There is normal conjunctiva bilaterally. No signs of icterus. Ears, nose, mouth and throat: There are moist mucous membranes and no oral lesions. Neck: The neck is supple, there is no tenderness or JVD. Cardiovascular: There is a regular rate and rhythm. No murmur, rub or gallop is appreciated. Respiratory: Lungs are clear to auscultation, respirations are non-labored, breath sounds are equal. No wheezes, stridor, rales, or rhonchi. Gastrointestinal: Soft, non-distended, non-tender abdomen without masses or organomegaly noted. There is no rebound or guarding present. No CVA tenderness. Bowel sounds are unremarkable. Musculoskeletal: Normal ROM, no tenderness. Strength 5/5. Sensation intact. Radial pulses equal bilaterally 2+. Neurological: A&O x 3. CN II-XII intact, memory intact to immediately, intermediate and administrative resident recall. Able to follow simple verbal. Able to name a common object (pen). High quality, labial (pa) and lingual (la) speech. Low quality posterior pharynx/larynx (ga) voice sounds. Able to express general knowledge (days in a week). No hemineglect or inattention noted. Finger agnosia (-) and spatially oriented (identified L index finger touched R shoulder with L index finger). Light touch and temperature sensation present over the face, chest, abdomen, back, UE bilaterally, and LE bilaterally. Able to localize point during point localization b/l and extinction. No visible bulk atrophy, hypertrophy, fasciculations, or myoclonus of the UE or LE b/l. Full PROM in UE and LE b/l. Bilateral muscle strength 5/5 for the following muscles: deltoid, biceps, triceps, brachioradialis, wrist extensors/flexor, hip flexor, hip abductors/adductors, hamstrings, quadriceps, feet dorsiflexors/plantar flexors. Finger to nose, finger to the examiners finger, and heel to watkins coordinated a nd accurate b/l. Coordinated and even demonstration of hand flip, finger to thumb, and toe tap b/l. Gait is coordinated and even in stride with tandem, toe and heel walk. Maintains balance with monopedal stance. (-) Romberg. (-) pronator drift. No nuchal rigidity. (-) Brudzinskis and Kernig signs. Skin: Skin is warm and dry and no rashes or lesions are noted. No LE or UE swelling. Psychiatric: Cooperative, appropriate mood & affect, normal judgment. Limitations: no limitations Course Vital Signs 08/31/18 08/31/18 08/31/18 14:16 16:51 19:10 Temperature 98.3 F Pulse Rate 64 64 74 Respiratory 18 18 18 Rate Blood Pressure 114/73 118/74 109/61 O2 Sat by Pulse 98 98 99 Oximetry 08/31/18 20:35 Temperature Pulse Rate 62 Respiratory 18 Rate Blood Pressure 106/60 O2 Sat by Pulse 99 Oximetry Medical Decision Making - Medical Decision Making 43-year-old female presented for chief complaint of headache. No focal neurological deficits. Patient states she is being worked up by Dr. Abdi for reason as to why shes had previous spontaneous DVT. Patient denies current CP or SOB. Lungs clear to auscultation no murmur on examination. Patient states headache different than typical migraine. JETER onset within 4-[address] wo contrast no acute intracranial hemorrhage or process. Patient dimer was elevated--obtained due to patient having episode of chest pain last night, CTA no PE. Troponin (-). EKG no change. Patient VS remain stable patient JETER resolving. Given toradol and benadryl. Patient case was discussed with Dr. Rebolledo he is agreeable with discharge at this time. Findings as well as all return parameters were discussed the patient she scribbled care plan discharge at this time patient is to follow-up with primary care provider in one to 2 days. - Lab Data Result diagrams: 08/31/18 16:50 06/10/19 16:50 Lab Results 08/31/18 08/31/18 08/31/18 Range/Units 16:50 16:50 16:50 WBC 10.0 (3.8-10.6) k/uL RBC 4.84 (3.80-5.40) m/uL Hgb 14.1 (11.4-16.0) gm/dL Hct 41.6 (34.0-46.0) % MCV 86.0 (80.0-100.0) fL MCH 29.2 (25.0-35.0) pg MCHC 33.9 (31.0-37.0) g/dL RDW 13.8 (11.5-15.5) % Plt Count 219 (150-450) k/uL Neutrophils % 69 % Lymphocytes % 20 % Monocytes % 7 % Eosinophils % 2 % Basophils % 1 % Neutrophils # 6.9 (1.3-7.7) k/uL Lymphocytes # 2.0 (1.0-4.8) k/uL Monocytes # 0.7 (0-1.0) k/uL Eosinophils # 0.2 (0-0.7) k/uL Basophils # 0.1 (0-0.2) k/uL D-Dimer 0.97 H (<0.60) mg/L FEU Sodium 140 (137-145) mmol/L Potassium 3.7 (3.5-5.1) mmol/L Chloride 108 H (98-107) mmol/L Carbon Dioxide 25 (22-30) mmol/L Anion Gap 7 mmol/L BUN 10 (7-17) mg/dL Creatinine 0.69 (0.52-1.04) mg/dL Est GFR (CKD-EPI)AfAm >90 (>60 ml/min/1.73 sqM) Est GFR (CKD-EPI)NonAf >90 (>60 ml/min/1.73 sqM) Glucose 84 (74-99) mg/dL Calcium 8.7 (8.4-10.2) mg/dL Total Bilirubin 0.4 (0.2-1.3) mg/dL AST 16 (14-36) U/L ALT 16 (9-52) U/L Alkaline Phosphatase 51 (38-126) U/L Troponin I (0.000-0.034) ng/mL NT-Pro-B Natriuret Pep pg/mL Total Protein 6.0 L (6.3-8.2) g/dL Albumin 3.6 (3.5-5.0) g/dL 08/31/18 08/31/18 Range/Units 16:50 16:50 WBC (3.8-10.6) k/uL RBC (3.80-5.40) m/uL Hgb (11.4-16.0) gm/dL Hct (34.0-46.0) % MCV (80.0-100.0) fL MCH (25.0-35.0) pg MCHC (31.0-37.0) g/dL RDW (11.5-15.5) % Plt Count (150-450) k/uL Neutrophils % % Lymphocytes % % Monocytes % % Eosinophils % % Basophils % % Neutrophils # (1.3-7.7) k/uL Lymphocytes # (1.0-4.8) k/uL Monocytes # (0-1.0) k/uL Eosinophils # (0-0.7) k/uL Basophils # (0-0.2) k/uL D-Dimer (<0.60) mg/L FEU Sodium (137-145) mmol/L Potassium (3.5-5.1) mmol/L Chloride (98-107) mmol/L Carbon Dioxide (22-30) mmol/L Anion Gap mmol/L BUN (7-17) mg/dL Creatinine (0.52-1.04) mg/dL Est GFR (CKD-EPI)AfAm (>60 ml/min/1.73 sqM) Est GFR (CKD-EPI)NonAf (>60 ml/min/1.73 sqM) Glucose (74-99) mg/dL Calcium (8.4-10.2) mg/dL Total Bilirubin (0.2-1.3) mg/dL AST (14-36) U/L ALT (9-52) U/L Alkaline Phosphatase (38-126) U/L Troponin I <0.012 (0.000-0.034) ng/mL NT-Pro-B Natriuret Pep 157 pg/mL Total Protein (6.3-8.2) g/dL Albumin (3.5-5.0) g/dL Ventricular rate 64 bpm, OK interval 164 ms, QRS ration 82 ms, QT/QTC 444/458 ms. Normal sinus rhythm low voltage QRS. No ST elevation or depression nonspecific T-wave. 08/31/18 18:34 Disposition Clinical Impression: Headache, Chest pain Disposition: HOME SELF-CARE Condition: Good Instructions (If sedation given, give patient instructions): Chest Pain (ED), Acute Headache (ED) Additional Instructions: Please use medication as discussed. Please follow-up with family doctor in the next 2 days. Please return to emergency room if the symptoms increase or worsen or for any other concerns. Is patient prescribed a controlled substance at d/c from ED?: No Referrals: Mary Mireles MD [Primary Care Provider] - 1-2 days Time of Disposition: 20:44
[2018-08-31 17:05] LABS: Basophils # (A) 0.1 k/uL (0-0.2); Basophils % (A) 1 %; Eosinophils # (A) 0.2 k/uL (0-0.7); Eosinophils % (A) 2 %; HCT 41.6 % (34.0-46.0); HGB 14.1 gm/dL (11.4-16.0); Lymphocytes % (A) 20 %; MCH 29.2 pg (25.0-35.0); MCHC 33.9 g/dL (31.0-37.0); Mean Platelet Volume 7.5; Monocytes # (A) 0.7 k/uL (0-1.0); Monocytes % (A) 7 %; Neutrophils # (A) 6.9 k/uL (1.3-7.7); Neutrophils % (A) 69 %; Platelet Count 219 k/uL (150-450); RBC 4.84 m/uL (3.80-5.40); RDW 13.8 % (11.5-15.5)
[2018-08-31 17:18] LABS: ALT 16 U/L (9-52); AST 16 U/L (14-36); African American GFR (CKD) >90 (>60 ml/min/1.73 sqM); Albumin 3.6 g/dL (3.5-5.0); Alkaline Phosphatase 51 U/L (38-126); Anion Gap 7 mmol/L; Blood Urea Nitrogen 10 mg/dL (7-17); Calcium 8.7 mg/dL (8.4-10.2); Carbon Dioxide 25 mmol/L (22-30); Chloride 108 mmol/L (98-107); Glucose 84 mg/dL (74-99); Potassium 3.7 mmol/L (3.5-5.1); Sodium 140 mmol/L (137-145); Total Bilirubin 0.4 mg/dL (0.2-1.3)
--- NOTE | 2018-08-31 19:36 | CT ---
EXAMINATION TYPE: CT angio COW [place] DATE OF EXAM: 08/31/2018 7:05 PM COMPARISON: None HISTORY: Low BP, dizziness. PT has hx HTN CT DLP: 2063.9 mGycm Automated exposure control for dose reduction was used. TECHNIQUE: Performed with IV Contrast, patient injected with 50 mL of Isovue 370. FINDINGS: Vertebral arteries are codominant. Basilar artery is unremarkable. Posterior circulation appears chambers nt. The internal carotid arteries appear grossly unremarkable as do the anterior cerebral arteries an d middle cerebral arteries. No sizable aneurysm. Posterior communicating artery appears present on th e left although diminutive without definitive connection on the right. Therefore [place] is questionably intact. IMPRESSION: NO FOCAL OCCLUSION, HEMODYNAMICALLY SIGNIFICANT OR ANEURYSMAL OUTPOUCHING OF THE MAJOR INTRACRANIA L VASCULATURE.
--- NOTE | 2018-08-31 19:58 | CT ---
EXAMINATION TYPE: CT chest angio for PE with contrast and with 3-D reconstruction renderings DATE OF EXAM: 08/31/2018 COMPARISON: None HISTORY: Low BP, dizziness CT DLP: 817.9 mGycm Automated exposure control for dose reduction was used. CONTRAST: CT Chest for pulmonary embolism performed with with IV Contrast, patient injected with 50 m L of Isovue 370. FINDINGS: LUNGS: The lungs are grossly clear, there is no concerning parenchymal mass or nodule identified. The re is no pleural effusion or pneumothorax seen. The tracheobronchial tree is patent. MEDIASTINUM: There is mild enhancement of the pulmonary artery and its branches, but there is no CT e vidence for pulmonary embolism. No acute aortic findings. There are no greater than 1 cm hilar or med iastinal lymph nodes. There is no cardiomegaly and no pericardial effusion is seen. OTHER: No additional significant abnormality is seen. IMPRESSION: No acute process.
[2018-08-31] MEDS ORDERED: diphenhydrAMINE 50 MG/ML 1 ML VIAL IVP STA (20:23)
[2018-08-31] MEDS ORDERED: KETOROLAC 30 MG/ML 1 ML VIAL IVP STA (20:23)
[2018-08-31 21:16] VITALS: BP 103/60; PULSE 78; TEMP 97.8
== END 2018-08-31 21:15 | disposition home or self-care (01) ==
LOC: EC 13:32
DX: R51 Headache (principal); R07.9 Chest pain, unspecified; R42 Dizziness and giddiness; I11.0 Hypertensive heart disease with heart failure; I50.9 Heart failure, unspecified; E11.40 Type 2 diabetes mellitus with diabetic neuropathy, unspecified; K21.9 Gastro-esophageal reflux disease without esophagitis; E78.5 Hyperlipidemia, unspecified; G25.81 Restless legs syndrome; F41.9 Anxiety disorder, unspecified; F31.9 Bipolar disorder, unspecified; F43.10 Post-traumatic stress disorder, unspecified; G47.30 Sleep apnea, unspecified; D64.9 Anemia, unspecified; M19.90 Unspecified osteoarthritis, unspecified site; Z86.14 Personal history of Methicillin resistant Staphylococcus aureus infection; Z86.73 Personal history of transient ischemic attack (TIA), and cerebral infarction without residual deficits; Z86.718 Personal history of other venous thrombosis and embolism; Z87.42 Personal history of other diseases of the female genital tract; Z99.89 Dependence on other enabling machines and devices; Z79.1 Long term (current) use of non-steroidal anti-inflammatories (NSAID); Z79.82 Long term (current) use of aspirin; Z79.84 Long term (current) use of oral hypoglycemic drugs; Z79.899 Other long term (current) drug therapy; Z86.69 Personal history of other diseases of the nervous system and sense organs; Z88.0 Allergy status to penicillin
CPT/HCPCS: 36415; 93005; 85379; 83880; 80053; 84484; 85025; 71046; 70496; 70450; 71275; 99284; 96374; 96375; J1200; J1885; Q9967

== ENCOUNTER → 2018-09-04 | Outpatient (CLI) | payer OTHER ==
[2018-09-04 18:08] LABS: Rheumatoid Factor 4 IU/mL (0-15)
[2018-09-04 18:09] LABS: C Reactive Protein <0.4 mg/dL (0.0-0.8); Uric Acid 3.1 mg/dL (2.9-7.7)
[2018-09-08 10:49] LABS: Lyme IgG/IgM 0.12 Index
== END | disposition home or self-care (01) ==
LOC: LABWHC1 12:20
PROVIDERS: ATTEND Nurse Practitioner Family
DX: M25.50 Pain in unspecified joint (principal)
CPT/HCPCS: 36415; 84550; 85652; 86038; 86140; 86431; 86618

== ENCOUNTER → 2018-10-30 | Outpatient (CLI) | payer OTHER ==
[2018-10-30 17:18] LABS: Basophils # (A) 0.1 k/uL (0-0.2); Basophils % (A) 1 %; Eosinophils # (A) 0.3 k/uL (0-0.7); Eosinophils % (A) 3 %; HCT 48.3 % (34.0-46.0); HGB 15.9 gm/dL (11.4-16.0); Lymphocytes # (A) 2.2 k/uL (1.0-4.8); Lymphocytes % (A) 21 %; MCH 29.4 pg (25.0-35.0); MCHC 32.9 g/dL (31.0-37.0); MCV 89.3 fL (80.0-100.0); Mean Platelet Volume 7.7; Monocytes # (A) 0.7 k/uL (0-1.0); Monocytes % (A) 7 %; Neutrophils # (A) 7.1 k/uL (1.3-7.7); Neutrophils % (A) 67 %; Platelet Count 331 k/uL (150-450); RDW 14.6 % (11.5-15.5); WBC 10.6 k/uL (3.8-10.6)
--- NOTE | 2018-10-30 17:33 | XR ---
EXAMINATION TYPE: XR Hip LT and AP Pelvis DATE OF EXAM: 10/30/2018 COMPARISON: NONE HISTORY: Pain TECHNIQUE: A single AP view of the pelvis is obtained. Two views of the left hip are obtained. FINDINGS: Pelvic ring is intact. Proximal left femur and hip joint appear normal. Sacroiliac joints a ppear normal. There is no sign of hip dysplasia. IMPRESSION: Normal pelvis and left hip exam.
[2018-11-02 16:01] LABS: African American GFR (CKD) 78.8 (60.0-200.0); Albumin 4.6 g/dL (3.80-4.90); Anion Gap 9.5 mmol/L (4.00-12.00); Calcium 9.7 mg/dL (8.7-10.3); Carbon Dioxide 30.5 mmol/L (21.6-31.8); Globulin 2.3 g/dL (1.6-3.3); Potassium 4.2 mmol/L (3.5-5.5); Total Bilirubin 0.3 mg/dL (0.2-1.2); Total Protein 6.9 g/dL (6.2-8.2)
[2018-11-02 16:48] LABS: Magnesium 1.8 mg/dL (1.5-2.4)
== END | disposition home or self-care (01) ==
LOC: LABWHC1 16:52
PROVIDERS: ATTEND Nurse Practitioner Family
DX: E11.42 Type 2 diabetes mellitus with diabetic polyneuropathy (principal); R25.2 Cramp and spasm; I10 Essential (primary) hypertension; M25.552 Pain in left hip; M25.551 Pain in right hip
CPT/HCPCS: 36415; 73502; 80053; 83735; 84100; 85025

== ENCOUNTER 2018-12-17 09:05 | Day surgery (SDC) | payer OTHER ==
[2018-12-15 12:02] VITALS: BMI 41.5
[~2018-12-17 09:05] MED LIST changes: +LIDOCAINE 1% 20 ML VIAL (10MG/ML) FOR IV START INTRADERMA PRN; -MOXIFLOXACIN HCL 0.5% DROPS 3 ML BTL OP ONE; -TETRACAINE 0.5% OPHTH (PF) DROPS 4 ML BTL OP ONE; -TIMOLOL 0.5% OPHTH DROPS 5 ML BTL OP ONE
[2018-12-17 09:31] VITALS: TEMP 97.7
[2018-12-17 09:42] LABS: Glucose,Whole Blood 243 mg/dL (75-99)
[2018-12-17] MEDS ORDERED: fentaNYL (PF) 50 MCG/ML 2 ML AMP ONE (10:21)
[2018-12-17] MEDS ORDERED: PROPOFOL 10 MG/ML 20 ML VIAL IV ONE (10:21)
[2018-12-17] MEDS ORDERED: MIDAZOLAM 2 MG/2 ML VIAL ONE (10:21)
[2018-12-17] MEDS ORDERED: LIDOCAINE 1% INJ 10MG/ML (20 ML MDV) ONE (10:21)
--- NOTE | 2018-12-17 10:58 | P.PCN ---
Date of Procedure: 12/17/18 Description of Procedure: BRIEF HISTORY: 43-year-old female with a medical history significant for gastroesophageal reflux disease without esophagitis, intermittent dysphagia to solid and liquid foods for 2 months as well as abdominal bloating. EGD is performed for further evaluation. PROCEDURE PERFORMED: Esophagogastroduodenoscopy with biopsy. PREOPERATIVE DIAGNOSIS: Esophageal dysphagia. ESTIMATED BLOOD LOSS: Minimal. IV sedation per anesthesia. PROCEDURE: After informed consent was obtained, the patient was brought into the endoscopy unit. IV sedation was administered by Anesthesia under continuous monitoring. Initially the Olympus GIF-190 video endoscope was inserted into the mouth. Esophagus intubated without any difficulty. It was gradually advanced into the stomach and duodenum and carefully examined. The bulb and the second part of the duodenum appeared normal, with biopsies taken. The scope at this time was withdrawn to the stomach, adequately insufflated with air, and upon careful examination, mucosa of the antrum, body, cardia and the fundus appeared normal, except for mild scattered erythema in the antrum and body suggestive of mild gastritis with biopsies taken. The scope was then withdrawn into the esophagus. The GE junction was located at 39 cm from the incisors. The esophagus appeared normal, with mid esophageal biopsies taken in the setting of dysphagia. There were no erosions or ulcerations seen and the patient tolerated the procedure well. IMPRESSION: 1. Mild gastritis antrum and body, biopsied. 2. Duodenal biopsies. Mid esophageal biopsies.. RECOMMENDATIONS: The findings of this examination were discussed with the patient and her . Okay to resume diet. Continue omeprazole and Zantac. Follow up with gastroenterology as previously scheduled. Await pathology from biopsies.
[2018-12-17 11:04] VITALS: PULSE 83; RESP 16
[2018-12-17 11:26] VITALS: BP 122/72
== END 2018-12-17 11:43 | disposition home or self-care (01) ==
LOC: ORWHC2ENDO 09:05
PROVIDERS: ATTEND Internal Medicine
DX: K29.50 Unspecified chronic gastritis without bleeding (principal); K21.9 Gastro-esophageal reflux disease without esophagitis; I11.0 Hypertensive heart disease with heart failure; I50.9 Heart failure, unspecified; E78.5 Hyperlipidemia, unspecified; J45.909 Unspecified asthma, uncomplicated; G47.33 Obstructive sleep apnea (adult) (pediatric); E11.9 Type 2 diabetes mellitus without complications; I82.409 Acute embolism and thrombosis of unspecified deep veins of unspecified lower extremity; G25.81 Restless legs syndrome; M10.9 Gout, unspecified; Z86.73 Personal history of transient ischemic attack (TIA), and cerebral infarction without residual deficits; Z88.0 Allergy status to penicillin; Z90.49 Acquired absence of other specified parts of digestive tract; Z98.890 Other specified postprocedural states; Z98.41 Cataract extraction status, right eye; Z98.42 Cataract extraction status, left eye; Z79.84 Long term (current) use of oral hypoglycemic drugs; Z79.899 Other long term (current) drug therapy
CPT/HCPCS: 88305; 43239; J2250; J2001; J3010; J2704

== ENCOUNTER 2019-02-18 17:01 | Emergency (ER) | payer OTHER ==
[2019-02-18 17:14] VITALS: RESP 18
[2019-02-18] MEDS ORDERED: ACETAMINOPHEN TAB 500 MG TAB PO STA (17:54)
[2019-02-18] MEDS ORDERED: IBUPROFEN 600 MG TAB PO STA (17:54)
--- NOTE | 2019-02-18 18:17 | XR ---
EXAMINATION TYPE: XR knee 4V RT DATE OF EXAM: 02/18/2019 COMPARISON: NONE HISTORY: Knee pain TECHNIQUE: 4 views FINDINGS: There is some narrowing of the medial joint space. There is spurring of the femoral and tib ial condyles. There is spurring on the patella. I see no fracture nor dislocation. IMPRESSION: Moderate osteoarthritis. No fracture seen. No joint effusion.
--- NOTE | 2019-02-18 18:18 | XR ---
EXAMINATION TYPE: XR Hip Complete RT DATE OF EXAM: 02/18/2019 COMPARISON: NONE HISTORY: Pain TECHNIQUE: 2 views FINDINGS: Hip joint space is fairly normal. I see no fracture nor dislocation. IMPRESSION: Negative right hip exam. No fracture.
--- NOTE | 2019-02-18 18:19 | XR ---
EXAMINATION TYPE: XR shoulder complete RT DATE OF EXAM: 02/18/2019 COMPARISON: NONE HISTORY: Shoulder pain TECHNIQUE: 3 views FINDINGS: I see no fracture nor dislocation. Shoulder joint spaces are fairly normal. There are no pa thologic calcifications. IMPRESSION: Negative right shoulder exam. No fracture.
--- NOTE | 2019-02-18 18:52 | ED ---
General Adult HPI - General Chief complaint: Fall Stated complaint: FALL, RT SIDE/LEG INJURY Time Seen by Provider: 02/18/19 17:20 Source: patient, RN notes reviewed, old records reviewed Mode of arrival: ambulatory Limitations: no limitations - History of Present Illness Initial comments: 43-year-old female patient presents to ED chief complaint of right shoulder right knee pain. Patient reports that approximately 3 in the morning she slipped on one of her daughters dolls and fell forward hitting her right knee and right shoulder on the wall. Denies any trauma to head or neck. Patient was that she is having right shoulder pain and right anterior and posterior knee pain. Patient is still ambulatory. Denies dislocation sensation. Patient also complains of some mild soreness of her right hip. Denies any other complaints. Systemic: Pt denies fatigue, fever/chills, rash. Pt denies weakness, night sweats, weight loss. Neuro: Pt denies headache, visual disturbances, syncope or pre-syncope. HEENT: Pt denies ocular discharge or irritation, otalgia, rhinorrhea, pharyngitis or notable lymphadenopathy. Cardiopulmonary: Pt denies chest pain, SOB, heart palpitations, dyspnea on exertion. Abdominal/GI: Pt denies abdominal pain, n/v/d. : Pt denies dysuria, burning w/ urination, frequency/urgency. Denies new onset urinary or bowel incontinence. MSK: Pt denies myalgia, loss of strength or function in extremities. Neuro: Pt denies new onset weakness, paresthesias. - Related Data Home Medications Medication Instructions Recorded Confirmed Albuterol Inhaler [Ventolin Hfa 1 - 2 puff INHALATION TID PRN 12/23/17 12/17/18 Inhaler] Aspirin 81 mg PO DAILY 12/23/17 12/17/18 Ergocalciferol [Vitamin D2 50,000 unit PO MO 12/23/17 12/17/18 (DRISDOL)] Metoprolol Tartrate 25 mg PO DAILY 12/23/17 12/17/18 Ranitidine HCl [Zantac] 150 mg PO HS 12/23/17 12/17/18 Gabapentin [Neurontin] 600 mg PO TID 01/14/18 12/17/18 metFORMIN HCL [Glucophage] 1,000 mg PO BID 01/14/18 12/17/18 FLUoxetine HCL [PROzac] 20 mg PO DAILY 05/17/18 12/17/18 Pioglitazone HCl [Actos] 15 mg PO DAILY 05/17/18 12/17/18 Rosuvastatin Calcium [Crestor] 40 mg PO DAILY 08/31/18 12/17/18 Spironolactone [Aldactone] 25 mg PO DAILY 08/31/18 12/17/18 traZODone HCL [Desyrel] 100 mg PO HS 08/31/18 12/17/18 Acetaminophen [Tylenol] 1,000 mg PO Q8HR PRN 12/15/18 12/17/18 Colchicine 0.6 mg PO DAILY 12/15/18 12/17/18 Cyclobenzaprine [Flexeril] 10 mg PO TID PRN 12/15/18 12/17/18 Ibuprofen 800 mg PO TID PRN 12/15/18 12/17/18 Insulin Glargine [Lantus] 25 unit SQ HS 12/15/18 12/17/18 Loratadine [Claritin] 10 mg PO DAILY 12/15/18 12/17/18 Omeprazole 20 mg PO HS 12/15/18 12/17/18 Simethicone [Gas Relief] 125 mg PO QID 12/15/18 12/17/18 Stool Softner Otc 1 tab PO DAILY PRN 12/15/18 12/17/18 glipiZIDE XL [Glucotrol Xl] 10 mg PO BID 12/15/18 12/17/18 rOPINIRole HCL [Requip] 0.5 mg PO HS 12/15/18 12/17/18 Previous Rx's Medication Instructions Recorded Furosemide [Lasix] 40 mg PO DAILY #30 tab 05/18/18 Ipratropium-Albuterol Nebulize 3 ml INHALATION RT-QID #120 05/18/18 [Duoneb 0.5 mg-3 mg/3 ml Soln] ampul.neb Allergies Allergy/AdvReac Type Severity Reaction Status Date / Time Penicillins Allergy Anaphylaxis Verified 12/17/18 09:27 Review of Systems ROS Statement: Those systems with pertinent positive or pertinent negative responses have been documented in the HPI. ROS Other: All systems not noted in ROS Statement are negative. Past Medical History Past Medical History: Blood Disorder, Heart Failure, CVA/TIA, Diabetes Mellitus, Deep Vein Thrombosis (DVT), GERD/Reflux, Hyperlipidemia, Hypertension, Osteoarthritis (OA), Sleep Apnea/CPAP/BIPAP Additional Past Medical History / Comment(s): 02-09-18 pt wants pne vaccine this admit. pmh includes:neuropathy, RLS, chronic anemia,"thrombocytosis" hx of blood clots both arms, Hx of a fall and hospitalized at [facility] for MRSA infection on face, "takes metoprolol for rapid heart rate",hx uterine fibroids,pt no longer needs cpap machine-after losing 162#. History of Any Multi-Drug Resistant Organisms: MRSA Date of last positivie culture/infection: 12/2017 MDRO Source:: face Past Surgical History: Cholecystectomy, Hysterectomy Additional Past Surgical History / Comment(s): 2 right knee surgeries, nose reconstruction, bilcarpal tunnel release, laser eye surgery, [id number] , ovarian cyst removal, sepideh cataracts removed Past Anesthesia/Blood Transfusion Reactions: No Reported Reaction Past Psychological History: Anxiety, Bipolar, Depression, PTSD Smoking Status: Never smoker Past Alcohol Use History: Rare Past Drug Use History: None Reported - Past Family History Mother Family Medical History: Cancer, CVA/TIA Father Family Medical History: Cancer, CVA/TIA General Exam - General Exam Comments Initial Comments: Constitutional: NAD, AOX3, Pt has pleasant affect. HEENT: NC/AT, trachea midline, neck supple, no lymphadenopathy. Posterior pharynx non erythematous, without exudates. External ears appear normal, without discharge. Mucous membranes moist. Eyes PERRLA, EOM intact. There is no scleral icterus. No pallor noted. Cardiopulmonary: RRR, no murmurs, rubs or gallops, no JVD noted. Lungs CTAB in anterior and posterior cabral. No peripheral edema. Abdominal exam: Abdomen soft and non-distended. Abdomen non-tender to palpation in all 4 quadrants. Bowel sounds active in LLQ. No hepatosplenomegaly. No ecchymosis Neuro: CN II-XII grossly intact. No nuchal rigidity. No raccon eyes, no ren sign, no hemotympanum. No cervical spinal tenderness. MSK: Knee nontender to palpation. Active and passive range of motion intact. Patient ambulatory with antalgic gait. Right anterior shoulder mild tenderness to palpation. Full active range of motion. Other areas of tenderness. Neurovascularly intact distally. No posterior calf tenderness bilaterally, homans sign negative bilaterally. Posterior tibialis and radial pulse +2 bilaterally. Sensation intact in upper and lower extremities. Full active ROM in upper and lower extremities, 5/5 stregnth. Limitations: no limitations Course Vital Signs 02/18/19 17:10 Temperature 98.1 F Pulse Rate 94 Respiratory 18 Rate Blood Pressure 160/94 O2 Sat by Pulse 98 Oximetry Medical Decision Making - Medical Decision Making 43-year-old female patient presents ED following fall. Patient had fall 3:00 this morning. Had her right knee, right shoulder and the wall. Complains of right shoulder and right knee and right hip pain. Physical exam displayed anterior shoulder mildly tender. Flexion range of motion. Knee nontender. Active passive range of motion intact. Neurovascularly intact radial pulse +2, dorsalis pedis pulse posterior tibialis pulse +2. Plain film of knee displayed moderate osteoarthritis no fracture seen no joint effusion. Plain films hip and shoulder negative. Patient was offered mobilization. Patient preferring Werner wrap with crutches with limited weightbearing and right lower extremity. Patient discharged with follow-up with primary care provider will follow-up with orthopedic consult tomorrow. Will return to ER if condition worsens in any way. Case discussed with Dr. Shrestha. Disposition Clinical Impression: Shoulder sprain, Knee sprain Disposition: HOME SELF-CARE Condition: Stable Instructions (If sedation given, give patient instructions): Knee Sprain (ED), Shoulder Sprain (ED) Additional Instructions: Use crutches, do not bear weight on right lower extremity. Follow-up with primary care provider and orthopedic consult tomorrow. Return to ER if condition worsens. Is patient prescribed a controlled substance at d/c from ED?: No Referrals: Mary Mireles MD [Primary Care Provider] - 1-2 days Gautam Munoz DO [Doctor of Osteopathic Medicine] - 1-2 days
[2019-02-18 19:01] VITALS: BP 155/85; PULSE 98; TEMP 98
== END 2019-02-18 19:00 | disposition home or self-care (01) ==
LOC: EC 17:01
DX: S83.91XA Sprain of unspecified site of right knee, initial encounter (principal); S43.401A Unspecified sprain of right shoulder joint, initial encounter; M17.11 Unilateral primary osteoarthritis, right knee; M25.551 Pain in right hip; I11.0 Hypertensive heart disease with heart failure; I50.9 Heart failure, unspecified; K21.9 Gastro-esophageal reflux disease without esophagitis; E78.5 Hyperlipidemia, unspecified; E11.40 Type 2 diabetes mellitus with diabetic neuropathy, unspecified; G25.81 Restless legs syndrome; F41.9 Anxiety disorder, unspecified; F32.9 Major depressive disorder, single episode, unspecified; F43.10 Post-traumatic stress disorder, unspecified; G47.30 Sleep apnea, unspecified; Z99.89 Dependence on other enabling machines and devices; Z86.73 Personal history of transient ischemic attack (TIA), and cerebral infarction without residual deficits; Z86.14 Personal history of Methicillin resistant Staphylococcus aureus infection; Z98.890 Other specified postprocedural states; Z79.4 Long term (current) use of insulin; Z79.1 Long term (current) use of non-steroidal anti-inflammatories (NSAID); Z79.82 Long term (current) use of aspirin; Z79.899 Other long term (current) drug therapy; Z88.0 Allergy status to penicillin; W01.10XA Fall on same level from slipping, tripping and stumbling with subsequent striking against unspecified object, initial encounter
CPT/HCPCS: 73502; 99284